=== PATIENT | female | born 1955 | race Caucasian/White ===

== ENCOUNTER 2020-07-08 13:37 | Outpatient (REF) | payer OTHER, SELFPAY ==
[2020-07-08 13:49] LABS: MANUAL DIFF FLAG NO
[2020-07-08 13:53] LABS: Basophils Absolute Auto 0.1 X10*3/uL (0.0-0.2); Basophils Percent Auto 0.7 % (0-2); Eosinophils Absolute Auto 0.4 X10*3/uL (0.0-0.4); Eosinophils Percent Auto 3.9 % (0-4); Hematocrit 41.1 % (37-47); Hemoglobin 13.2 g/dl (12.0-16.0); Imm Gran Abs Auto 0.02 X10*3/uL (0.00-0.03); Imm Gran Pct Auto 0.2 % (0.0-0.4); Lymphocytes Absolute Auto 2.8 X10*3/uL (1.2-4.9); Lymphocytes Percent Auto 29.9 % (20-40); Mean Corpuscular HGB Conc 32.1 g/dl (31.0-35.0); Mean Corpuscular Hemoglobin 31.7 pg (27.0-33.0); Mean Corpuscular Volume 98.8 fL (80-98); Mean Platelet Volume 11.5 fL (9.4-12.3); Monocytes Absolute Auto 0.7 X10*3/uL (0.1-1.2); Monocytes Percent Auto 7.1 % (2-11); Neutrophils Absolute Auto 5.5 X10*3/uL (2.0-8.3); Neutrophils Percent Auto 58.2 % (45-73); Platelet Count 285 X10*3/uL (160-400); Red Blood Count 4.16 X10*6/uL (4.20-5.50); Red Cell Distribution Width 13.3 % (11.0-16.0); White Blood Count 9.5 X10*3/uL (4.8-10.8)
[2020-07-08 14:20] LABS: Estimated Average Glucose 120 mg/dL; Hemoglobin A1c % 5.8 %
[2020-07-08 14:21] LABS: Glucose Urine UA NEG (NEG); Leukocyte Esterase Urine NEG (NEG); Nitrite Urine NEG (NEG); Specific Gravity - Urine <= 1.005 (1.005-1.025); Urine Blood NEG (NEG); Urine Ketones NEG (NEG); Urine Protein NEG (NEG-TRACE)
[2020-07-08 14:22] LABS: Appearance Urine CLEAR; Color Urine STRAW
[2020-07-08 14:35] LABS: Alanine Aminotransferase 12 U/L (0-31); Albumin Level 4.2 g/dL (3.5-5.0); Alkaline Phosphatase 56 U/L (39-117); Anion Gap 12 (12-20); Aspartate Amino Transferase 16 U/L (5-31); Bilirubin Total 0.3 mg/dL (0.0-1.0); Blood Urea Nitrogen 16 mg/dL (9-16); Calcium 9.2 mg/dL (8.4-10.2); Carbon Dioxide 27 mmol/L (22-29); Chloride 103 mmol/L (96-108); Cholesterol 218 mg/dL; Estimated Glomerular Filt Rate > 60; Glucose Fasting 100 mg/dL (60-99); HDL Cholesterol 78 mg/dL; LDL Cholesterol Calculated 125 mg/dl; Potassium 4.1 mmol/l (3.3-5.1); Sodium 138 mmol/L (135-145); Total Protein 6.3 g/dL (6.5-8.0); Triglycerides 78 mg/dL
[2020-07-08 14:42] LABS: Creatinine Urine 14.39 mg/dL; Microalbumin Urine < 5.0 mg/L
[2020-07-08 14:58] LABS: Vitamin D 25-OH Total 31.3 ng/mL (>30)
== END 2020-07-08 13:38 | disposition home or self-care (01) ==
LOC: HO.LNP 13:37
PROVIDERS: PCP Internal Medicine; Visit Provider Internal Medicine
DX: Z00.00 Encounter for general adult medical examination without abnormal findings (principal); J44.9 Chronic obstructive pulmonary disease, unspecified; K58.0 Irritable bowel syndrome with diarrhea; F34.1 Dysthymic disorder; R73.03 Prediabetes; M85.859 Other specified disorders of bone density and structure, unspecified thigh; Z87.891 Personal history of nicotine dependence
CPT/HCPCS: 80053; 80061; 81003; 82043; 82306; 83036; 85025

== ENCOUNTER 2020-07-13 | Outpatient (REF) | payer OTHER, SELFPAY | END 2020-07-13 00:01 | disposition home or self-care (01) | LOC: HO.LNP | PROVIDERS: Visit Provider Internal Medicine | DX: Z12.4 Encounter for screening for malignant neoplasm of cervix (principal) | CPT/HCPCS: 88142 ==

== ENCOUNTER 2020-07-15 14:04 | Outpatient (REF) | payer OTHER, SELFPAY | END 2020-07-15 14:05 | disposition home or self-care (01) | LOC: HO.LNP 14:04 | PROVIDERS: Visit Provider Internal Medicine | DX: Z00.00 Encounter for general adult medical examination without abnormal findings (principal); Z12.4 Encounter for screening for malignant neoplasm of cervix ==

== ENCOUNTER 2020-09-03 07:41 | Outpatient (REF) | payer OTHER, SELFPAY | END 2020-09-03 07:42 | disposition home or self-care (01) | LOC: HO.LAB 07:41 | PROVIDERS: Visit Provider Internal Medicine | DX: Z20.828 Contact with and (suspected) exposure to other viral communicable diseases (principal) | CPT/HCPCS: C9803; U0003 ==

== ENCOUNTER 2020-09-21 10:24 | Outpatient (REF) | payer OTHER, SELFPAY ==
--- NOTE | 2020-09-21 | MM_ITS ---
EXAMINATION: MM SCREENING DIGITAL BREAST TOMOSYNTHESIS, BILATERAL CLINICAL INFORMATION: Screening. Asymptomatic. The lifetime risk of breast cancer based on the Tyrer-Cuzick Model is 5%. COMPARISON: Mammography: 06/30/2019, 04/11/2018, 03/25/2017 TECHNIQUE: Digital breast tomosynthesis is performed in both the craniocaudal and mediolateral oblique views along with computer-aided detection (CAD). Synthesized 2D images are generated from the tomosynthesis. FINDINGS: There are scattered areas of fibroglandular density (ACR BI-RADS breast composition Category b). There are no significant masses, abnormal calcifications, or other abnormalities. Minimal pattern is similar to prior study. No significant changes. MM/MM tomosynthesis screening BI IMPRESSION: No mammographic evidence of malignancy. ASSESSMENT: BI-RADS 1: Negative RECOMMENDATION: Routine annual mammography screening. This patient's information was entered into a reminder system with a target due date for their next mammogram.
== END 2020-09-21 10:25 | disposition home or self-care (01) ==
LOC: HO.MAMMO 10:24
PROVIDERS: PCP Internal Medicine; Visit Provider Internal Medicine
DX: Z12.31 Encounter for screening mammogram for malignant neoplasm of breast (principal)
CPT/HCPCS: 77063; 77067

== ENCOUNTER 2021-05-23 07:43 | Outpatient (REF) | payer OTHER, SELFPAY | END 2021-05-23 07:44 | disposition home or self-care (01) | LOC: HO.LAB 07:43 | PROVIDERS: PCP Internal Medicine; Visit Provider Internal Medicine | DX: Z20.822 Contact with and (suspected) exposure to COVID-19 (principal) | CPT/HCPCS: C9803; U0003; U0005 ==

== ENCOUNTER 2021-07-04 08:01 | Outpatient (REF) | payer OTHER, SELFPAY ==
--- NOTE | ~2021-07-04 | MM_ITS ---
"EXAMINATION: BONE DENSITOMETRY CLINICAL INDICATION: Osteoporosis. COMPARISON: Previous BD dated 06/30/2019 and baseline BD dated 01/19/2011. TECHNIQUE: Using a [employer] DXA System (software version: 13.1) manufactured by [employer], dual-energy x-ray absorptiometry was performed of the lumbar spine and left hip. The images are of good technical quality. Summary results are attached. FINDINGS: AP SPINE L1-L4: Current: BMD 1.159 g/cm2, Z-score 1.8, T-score -0.2, normal, 1.5% decrease from previous, 6.0% decrease from baseline (<5% change is not significant). Prior: BMD 1.177 g/cm2. Baseline: BMD 1.233 g/cm2. LEFT FEMUR, NECK: Current: BMD 0.789 g/cm2, Z-score -0.1, T-score -1.8, osteopenia. Prior: BMD 0.803 g/cm2. Baseline: BMD 0.912 g/cm2. LEFT FEMUR, TOTAL: Current: BMD 0.905 g/cm2, Z-score 0.7, T-score -0.8, normal, 2.0% decrease from previous, 10.3% decrease from baseline (<5% change is not significant). Prior: BMD 0.923 g/cm2. Baseline: BMD 1.009 g/cm2. IDENTIFIED RISK FACTORS: Menopause. HISTORY OF FRACTURE: None listed. MEDICATIONS: None listed. MM/XR DEXA axial skeleton IMPRESSION: 1. DIAGNOSIS: Osteopenia based on the lowest T-score value of -1.8 in the femoral neck applying World Health Organization criteria. 2. 10-YEAR FRACTURE RISK PREDICTION, FRAX: Major osteoporotic fracture (clinical spine, forearm, hip or shoulder) 8.5%. Hip fracture 1.1%. 3. Treatment Recommendations: NOF guidelines recommend consideration for treatment in postmenopausal women and men age 50 and older presenting with the following: -A hip or vertebral (clinical or morphometric) fracture. -T-score less than or equal to -2.5 at the femoral neck or spine after appropriate evaluation to exclude secondary causes. -Low bone mass at the hip or spine and a 10-year fracture probability by FRAX of greater than or equal to 3% for hip fracture or greater than or equal to 20% for major osteoporotic fracture based on the [place] adapted WHO algorithm. 4. Other Recommendations: All treatment decisions require clinical judgment and consideration of individual patient factors, including patient preferences, comorbidities, previous drug use, risk factors not captured in the FRAX model (e.g. frailty, falls, vitamin D deficiency, increased bone turnover, interval significant decline in bone density) and possible under or overestimation of fracture risk by FRAX. Additional medical evaluation for secondary cause of low bone mineral density may be appropriate. FUTURE SCAN RECOMMENDATION: People with diagnosed cases of osteoporosis or at high risk for fracture should have regular bone mineral density tests. For patients eligible for Medicare, routine testing is allowed once every 2 years. The testing frequency can be increased to one year for patients who have rapidly progressing disease, those who are receiving or discontinuing medical therapy to restore bone mass, or have additional risk factors."
== END 2021-07-04 08:02 | disposition home or self-care (01) ==
LOC: HO.MAMMO 08:01
PROVIDERS: Visit Provider Internal Medicine
DX: Z13.820 Encounter for screening for osteoporosis (principal); M81.0 Age-related osteoporosis without current pathological fracture; Z78.0 Asymptomatic menopausal state
CPT/HCPCS: 77080

== ENCOUNTER 2021-07-07 06:22 | Day surgery (SDC) | payer OTHER, SELFPAY ==
[2021-07-03 14:51] VITALS: BMI 20.1
[2021-07-07 06:41] VITALS: BMI 20.1
[2021-07-07 06:49] VITALS: BP 130/80; PULSE 82; RESP 15; TEMP 37.2; O2SAT 99
--- NOTE | 2021-07-07 08:23 | HO.ANESPROP2 ---
FORMERLY [facility] Past Medical History Medical History Asthma COVID-19 vaccine series completed IBS (irritable bowel syndrome) Post-operative nausea and vomiting Seasonal allergies Surgical History Surgical History H/O colonoscopy Hx of tonsillectomy History of Problems with Anesthesia: No Social History Social History Are you a primary direct care counselor to a significant other at home: No Do you presently have visiting nurse or other home services: No Patient Tobacco Use Status: Former Tobacco user Quit Date: 2019 Tobacco use type: Cigarette Years Smoked: 25 Use of substances other than those prescribed or required for medical reasons: No Have you been hit, kicked, punched, or otherwise hurt by someone within the past year? If so, by whom?: No Are you DNR?: No Advance Directives: Yes (states is her 2 sisters-will bringHCP form DOS) Advance Directives on File: Yes Advance Directives Date on File: 07/07/21 Recently lost weight without trying: No Eating poorly because of decreased appetite: No Nutrition Risks: No Nutritional Risk Poor oral hygiene: No (has permanent bridges) Meds Allergies Allergy/AdvReac Type Severity Reaction Status Date / Time cefaclor [From [facility]] Allergy Intermediate Rash Verified 07/03/21 14:57 Active Medications: Current Medications Lactated Ringer's (Lr) 1,000 mls @ 500 mls/hr IV .Q2H RENNY Stop: 07/07/21 09:30 Sodium Biphosphate/Sodium Phosphate (Sodium Phosphate,Yates-Dibasic 133 Ml Enema) 133 ml ND ONCE PRN PRN Reason: Poor Colonoscopy Prep Results Home Medications Medication Instructions Recorded Confirmed Last Taken Type albuterol sulfate 90 mcg/actuation 2 puff PO Q4-6H PRN 07/03/21 07/03/21 Unknown History aerosol inhaler (Ventolin HFA) fluticasone propionate 50 1 spray INTRANASAL DAILY 07/03/21 07/03/21 07/07/21 History mcg/actuation nasal 1 spray spray,suspension loratadine 10 mg tablet (Claritin) 10 mg PO DAILY 07/03/21 07/03/21 07/07/21 History 10 mg Exam Exam Date and Time: July 07, 2021 0823 Height,Weight and Vital Signs: Height 5 ft 2 in Weight 49.895 kg Last Vital Signs Temp 98.9 F 07/07/21 06:49 Pulse 82 07/07/21 06:49 Resp 15 07/07/21 06:49 BP 130/80 07/07/21 06:49 Pulse Ox 99 07/07/21 06:49 Airway Mallampati Class: II TM Dist: >3cm Neck ROM: Full Loose/Missing/Broken Teeth: No Heart: RRR Lungs: CTA Assessment and Plan Assessment Anesthesia Assessment: Anesthesia Plan Discussed and Chart Reviewed Final Anesthetic Review History of Problems with Anesthesia: No NPO: Yes ASA Class: II Final Preanesthetic Review: Meds/Allgs Chart Reviewed, Consent Obtained/Reviewed and Anes Risks/Benef Reviewed Patient Risk: Low Procedure Risk: Low Anesthetic Plan Anesthetic Plan: MAC: Disposition: Standard PACU
[2021-07-07 08:27] VITALS: BP 101/53; PULSE 80; RESP 18; TEMP 36.9; O2SAT 100
--- NOTE | 2021-07-07 08:29 | PM.OP ---
Brief Operative Note Date of Service: 07/07/21 Pre-op diagnosis: Screening, Diarrhea Post-op diagnosis: other (Colon polyp, R/O microscopic colitis) Procedure: Colonoscopy to cecum and TI with biopsies, and bx/removal of polyp Surgeon: Zhen Florian Anesthesia: MAC Was an Brokerage Manager used for this Procedure?: No Estimated blood loss (mL): 3.0 Pathology: other (A. Terminal ileum B. Ascending colon C. Descending colon D. Polyp at 40cm) Condition: stable Disposition: PACU
[2021-07-07 08:42] VITALS: BP 124/52; PULSE 78; RESP 16; O2SAT 98
--- NOTE | 2021-07-07 09:20 | OP_ITS ---
SURGEON: Zhen Florian MD INDICATIONS: The patient presents for evaluation of colorectal cancer screening, diarrhea, and personal history of tubular adenoma of the colon. Full consent has been obtained from her for this, including risks of bleeding and perforation. PREOPERATIVE DIAGNOSIS: Colorectal cancer screening, diarrhea, personal history of tubular adenoma of the colon. POSTOPERATIVE DIAGNOSIS: Colorectal cancer screening, diarrhea, personal history of tubular adenoma of the colon, small colon polyp, rule out microscopic colitis, diverticulosis, and internal hemorrhoids. PROCEDURE PERFORMED: Colonoscopy to cecum and terminal ileum with biopsies, and biopsy removal of polyp. ESTIMATED BLOOD LOSS: COMPLICATIONS: ANESTHESIA: Medication used, monitored anesthesia care. ASSISTANTS: SPECIMENS: DESCRIPTION OF PROCEDURE: The patient was placed in the left lateral decubitus position. The digital rectal exam revealed no abnormalities. The Olympus video pediatric colonoscope was entered into the rectum and advanced easily to the cecum. Once in the cecum, I did identify normal-appearing cecal pouch with appendiceal orifice and a normal-appearing ileocecal valve. The terminal ileum was cannulated and appeared normal. Biopsies were obtained. The scope was withdrawn back in the colon. The entire cecum and ileocecal valve appeared normal. The scope was slowly withdrawn assessing all mucosal surfaces carefully. Preparation was excellent. I did not visualize any sign of colitis nor angiodysplasia. Random biopsies were obtained in the ascending and descending colon. At 40 cm, there was a flat approximately 3 or 4 mm polyp, which was biopsied and completely removed with cold biopsy forceps. There was a mild amount of sigmoid diverticulosis. In the rectum, scope was retroflexed visualizing internal hemorrhoids, but no other pathology. The rectal mucosa appeared normal. Scope was straightened and withdrawn from the patient. She tolerated the procedure well and was returned to recovery area in stable condition. IMPRESSION: 1. Small colon polyp, status post biopsy removal. 2. Rule out microscopic colitis. 3. Mild diverticulosis. 4. Internal hemorrhoids. PLAN: The results of the biopsies will be checked. I would recommend a repeat colonoscopy in 5 years for further screening and surveillance. If the colon biopsies are otherwise negative, she will continue to use Imodium on a p.r.n. basis. She was advised not to use any aspirin and NSAIDs for 1 week. MD LOS Gonsalez/NORI / [phone]
== END 2021-07-07 09:25 | disposition home or self-care (01) ==
PROVIDERS: PCP Internal Medicine; Visit Provider Internal Medicine
PROC: 0DJD8ZZ Inspection of Lower Intestinal Tract, Via Natural or Artificial Opening Endoscopic (ICD-10-PCS; CPT 45378; principal; 2021-07-07 07:30)
DX: Z12.11 Encounter for screening for malignant neoplasm of colon (principal); Z86.010 Personal history of colon polyps; K58.0 Irritable bowel syndrome with diarrhea; K63.5 Polyp of colon; K57.30 Diverticulosis of large intestine without perforation or abscess without bleeding; K64.8 Other hemorrhoids; Z79.899 Other long term (current) drug therapy; Z87.891 Personal history of nicotine dependence
CPT/HCPCS: 45380; 88305

== ENCOUNTER 2021-08-24 10:19 | Outpatient (REF) | payer OTHER, SELFPAY ==
[2021-08-24 10:21] LABS: MANUAL DIFF FLAG NO
[2021-08-24 10:56] LABS: Basophils Absolute Auto 0.1 X10*3/uL (0.0-0.2); Eosinophils Absolute Auto 0.5 X10*3/uL (0.0-0.4); Hematocrit 39.2 % (37.0-47.0); Hemoglobin 12.6 g/dl (12.0-16.0); Imm Gran Abs Auto 0.01 X10*3/uL (0.00-0.03); Imm Gran Pct Auto 0.1 % (0.0-0.4); Lymphocytes Absolute Auto 2.5 X10*3/uL (1.2-4.9); Lymphocytes Percent Auto 35.9 % (20-40); Mean Corpuscular HGB Conc 32.1 g/dl (31.0-35.0); Mean Corpuscular Volume 96.3 fL (80.0-98.0); Mean Platelet Volume 11.1 fL (9.4-12.3); Monocytes Absolute Auto 0.4 X10*3/uL (0.1-1.2); Monocytes Percent Auto 6.3 % (2-11); Neutrophils Absolute Auto 3.4 x10*3/uL (2.0-8.3); Neutrophils Percent Auto 49.7 % (45-73); Platelet Count 277 X10*3/uL (160-400); Red Blood Count 4.07 X10*6/uL (4.20-5.50); Red Cell Distribution Width 13.2 % (11.0-16.0); White Blood Count 6.9 X10*3/uL (4.8-10.8)
[2021-08-24 11:07] LABS: Estimated Average Glucose 120 mg/dL; Hemoglobin A1C 129.0522 umol/L; Hemoglobin A1c % 5.8 %
[2021-08-24 11:12] LABS: Appearance Urine CLEAR; Color Urine YELLOW; Glucose Urine UA NEG (NEG); Leukocyte Esterase Urine 2+ (NEG); Nitrite Urine NEG (NEG); Specific Gravity - Urine <= 1.005 (1.005-1.025); Urine Blood NEG (NEG); Urine Ketones NEG (NEG); Urine Protein NEG (NEG-TRACE)
[2021-08-24 11:15] LABS: Alanine Aminotransferase 17 U/L (0-31); Albumin Level 4.3 g/dL (3.5-5.0); Alkaline Phosphatase 56 U/L (39-117); Anion Gap 10 (12-20); Aspartate Amino Transferase 22 U/L (5-31); Bilirubin Total 0.5 mg/dL (0.0-1.0); Blood Urea Nitrogen 19 mg/dL (9-16); Calcium 9.4 mg/dL (8.4-10.2); Carbon Dioxide 26 mmol/L (22-29); Chloride 102 mmol/L (96-108); Cholesterol 245 mg/dL; Estimated Glomerular Filt Rate > 60; Glucose Fasting 100 mg/dL (60-99); HDL Cholesterol 94 mg/dL; LDL Cholesterol Calculated 138 mg/dl; Magnesium 2.1 mg/dL (1.6-2.6); Potassium 4.2 mmol/L (3.3-5.1); Sodium 134 mmol/L (135-145); Total Protein 6.6 g/dL (6.5-8.0); Triglycerides 69 mg/dL
[2021-08-24 11:31] LABS: Creatinine Urine 44.27 mg/dL; Microalbumin Urine < 5.0 mg/L
[2021-08-24 11:32] LABS: Vitamin D 25-OH Total 24.5 ng/mL (>30)
[2021-08-24 11:53] LABS: Bacteria Urine TRACE /LPF; RBC Urine 0 /HPF (0); Squamous Epithelial Cell Urine 1+ /LPF
== END 2021-08-24 10:20 | disposition home or self-care (01) ==
LOC: HO.LNP 10:19
PROVIDERS: Visit Provider Internal Medicine
DX: Z00.00 Encounter for general adult medical examination without abnormal findings (principal); R30.0 Dysuria; R73.09 Other abnormal glucose
CPT/HCPCS: 80053; 80061; 81001; 81003; 82043; 82306; 83036; 83735; 85025; 87086

== ENCOUNTER 2021-10-21 08:46 | Outpatient (REF) | payer OTHER, SELFPAY ==
--- NOTE | ~2021-10-21 | MM_ITS ---
EXAMINATION: MM SCREENING DIGITAL BREAST TOMOSYNTHESIS, BILATERAL CLINICAL INFORMATION: Screening. Asymptomatic. The lifetime risk of breast cancer based on the Tyrer-Cuzick Model is 5%. COMPARISON: Mammography: 09/21/2020, 06/30/2019, 04/11/2018, 03/25/2017 TECHNIQUE: Digital breast tomosynthesis is performed in both the craniocaudal and mediolateral oblique views along with computer-aided detection (CAD). Synthesized 2D images are generated from the tomosynthesis. FINDINGS: There are scattered areas of fibroglandular density (ACR BI-RADS breast composition Category b). Parenchymal pattern is similar to prior studies. There is no developing density or interval mass or architectural abnormality. Intramammary node again seen overlying posterior upper outer left breast, similar to prior exam 2017. Low right axillary tail node is stable as well. The skin contours are smooth. No abnormal calcifications. No significant changes. MM/MM tomosynthesis screening BI IMPRESSION: No mammographic evidence of malignancy. ASSESSMENT: BI-RADS 2: Benign RECOMMENDATION: Routine annual mammography screening. This patient's information was entered into a reminder system with a target due date for their next mammogram.
== END 2021-10-21 08:47 | disposition home or self-care (01) ==
LOC: HO.MAMMO 08:46
PROVIDERS: PCP Internal Medicine; Visit Provider Internal Medicine
DX: Z12.31 Encounter for screening mammogram for malignant neoplasm of breast (principal)
CPT/HCPCS: 77063; 77067

== ENCOUNTER 2022-11-10 08:41 | Outpatient (REF) | payer OTHER, SELFPAY ==
--- NOTE | ~2022-11-10 | MM_ITS ---
EXAMINATION: MM SCREENING DIGITAL BREAST TOMOSYNTHESIS, BILATERAL CLINICAL INFORMATION: Screening. Asymptomatic. The lifetime risk of breast cancer based on the Tyrer-Cuzick Model is 5.0%. COMPARISON: Mammography: October 21, 2021 and studies dating back to March 03, 2016 TECHNIQUE: Digital breast tomosynthesis is performed in both the craniocaudal and mediolateral oblique views along with computer-aided detection (CAD). Synthesized 2D images are generated from the tomosynthesis. FINDINGS: The breasts are heterogeneously dense, which may obscure small masses (ACR BI-RADS breast composition Category c). There are no significant masses, abnormal calcifications, or other abnormalities. MM/MM tomosynthesis screening BI IMPRESSION: No significant changes ASSESSMENT: BI-RADS 1: Negative RECOMMENDATION: Routine annual mammography screening. This patient's information was entered into a reminder system with a target due date for their next mammogram.
== END 2022-11-10 08:42 | disposition home or self-care (01) ==
LOC: HO.MAMMO 08:41
PROVIDERS: PCP Internal Medicine; Visit Provider Internal Medicine
DX: Z12.31 Encounter for screening mammogram for malignant neoplasm of breast (principal)
CPT/HCPCS: 77063; 77067

== ENCOUNTER 2022-11-30 10:45 | Outpatient (REF) | payer OTHER, SELFPAY ==
[2022-11-30 10:54] LABS: MANUAL DIFF FLAG NO
[2022-11-30 11:58] LABS: Appearance Urine Clear; Color Urine Yellow; Glucose Urine UA Negative (Negative); Leukocyte Esterase Urine Negative (Negative); Nitrite Urine Negative (Negative); Urine Blood Negative (Negative); Urine Ketones Negative (Negative); Urine Protein Negative (Neg-Trace)
[2022-11-30 12:01] LABS: Bacteria Urine None Seen (None Seen); Hyaline Casts Urine 0-2 /LPF (0-2); RBC Urine 0-2 /HPF (0-2); Squamous Epithelial Cell Urine 0-2 /HPF (0-2); WBC Urine 0-5 /HPF (0-5)
[2022-11-30 12:02] LABS: Basophils Absolute Auto 0.1 X10*3/uL (0.0-0.2); Basophils Percent Auto 1.2 % (0-2); Eosinophils Absolute Auto 0.3 X10*3/uL (0.0-0.4); Eosinophils Percent Auto 5.2 % (0-4); Hematocrit 38.7 % (37.0-47.0); Hemoglobin 12.7 g/dl (12.0-16.0); Imm Gran Abs Auto 0.02 X10*3/uL (0.00-0.03); Imm Gran Pct Auto 0.3 % (0.0-0.4); Lymphocytes Absolute Auto 1.9 X10*3/uL (1.2-4.9); Lymphocytes Percent Auto 29.5 % (20-40); Mean Corpuscular HGB Conc 32.8 g/dl (31.0-35.0); Mean Corpuscular Hemoglobin 31.1 pg (27.0-33.0); Mean Corpuscular Volume 94.9 fL (80.0-98.0); Mean Platelet Volume 10.5 fL (9.4-12.3); Monocytes Absolute Auto 0.5 X10*3/uL (0.1-1.2); Monocytes Percent Auto 8.1 % (2-11); Neutrophils Absolute Auto 3.7 x10*3/uL (2.0-8.3); Neutrophils Percent Auto 55.7 % (45-73); Platelet Count 300 X10*3/uL (160-400); Red Blood Count 4.08 X10*6/uL (4.20-5.50); Red Cell Distribution Width 13.7 % (11.0-16.0); White Blood Count 6.6 X10*3/uL (4.8-10.8)
[2022-11-30 12:39] LABS: Estimated Average Glucose 123 mg/dL; Hemoglobin A1c % 5.9 %
[2022-11-30 12:49] LABS: Erythrocyte Sedimentation Rate 7 MM/HR (0-20)
[2022-11-30 13:19] LABS: Alanine Aminotransferase 17 U/L (0-31); Albumin Level 4.2 g/dL (3.5-5.0); Alkaline Phosphatase 63 U/L (39-117); Anion Gap 14 (12-20); Aspartate Amino Transferase 21 U/L (5-31); Bilirubin Total 0.5 mg/dL (0.0-1.0); Blood Urea Nitrogen 22 mg/dL (9-16); Carbon Dioxide 25 mmol/L (22-29); Chloride 104 mmol/L (96-108); Cholesterol 234 mg/dL; Estimated Glomerular Filt Rate > 60; Glucose Fasting 88 mg/dL (60-99); HDL Cholesterol 91 mg/dL; LDL Cholesterol Calculated 132 mg/dl; Potassium 4.6 mmol/L (3.3-5.1); Sodium 138 mmol/L (135-145); Total Protein 6.3 g/dL (6.5-8.0); Triglycerides 58 mg/dL
[2022-11-30 13:21] LABS: Creatinine Urine 33.21 mg/dL; Microalbumin Urine < 5.0 mg/L
[2022-11-30 13:43] LABS: Reflex LDLD? No
== END 2022-11-30 10:46 | disposition home or self-care (01) ==
LOC: HO.LNP 10:45
PROVIDERS: Visit Provider Internal Medicine
DX: Z00.00 Encounter for general adult medical examination without abnormal findings (principal); M35.3 Polymyalgia rheumatica; J44.9 Chronic obstructive pulmonary disease, unspecified; R73.09 Other abnormal glucose; K58.0 Irritable bowel syndrome with diarrhea; E55.9 Vitamin D deficiency, unspecified; Z79.899 Other long term (current) drug therapy
CPT/HCPCS: 80053; 80061; 81001; 82043; 82306; 83036; 85025; 85652

== ENCOUNTER 2022-12-03 11:28 | Outpatient (REF) | payer OTHER, SELFPAY | END 2022-12-03 11:29 | disposition home or self-care (01) | LOC: HO.LNP 11:28 | PROVIDERS: Visit Provider Internal Medicine | DX: Z12.4 Encounter for screening for malignant neoplasm of cervix (principal) | CPT/HCPCS: 88142 ==

== ENCOUNTER 2023-02-07 06:18 | Outpatient (REF) | payer MEDICARE, OTHER, SELFPAY ==
--- NOTE | ~2023-02-07 | XR_ITS ---
EXAMINATION: Bilateral shoulder x-ray CLINICAL INFORMATION: Pain COMPARISON: None. TECHNIQUE: 3 views each shoulder FINDINGS: Right: Bone alignment is normal. No fracture or dislocation. Mild arthritis at the acromioclavicular joint. The glenohumeral joint is normal. Normal soft tissues. Left: Bone alignment is normal. No fracture or dislocation. Mild arthritis at the acromioclavicular joint. The glenohumeral joint is normal. Soft tissues are normal. 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
--- NOTE | ~2023-02-07 | XR_ITS ---
EXAMINATION: Bilateral shoulder x-ray CLINICAL INFORMATION: Pain COMPARISON: None. TECHNIQUE: 3 views each shoulder FINDINGS: Right: Bone alignment is normal. No fracture or dislocation. Mild arthritis at the acromioclavicular joint. The glenohumeral joint is normal. Normal soft tissues. Left: Bone alignment is normal. No fracture or dislocation. Mild arthritis at the acromioclavicular joint. The glenohumeral joint is normal. Soft tissues are normal. XR/XR shoulder LT min 2V IMPRESSION: Mild osteoarthritis at the bilateral acromioclavicular joints.
== END 2023-02-07 06:19 | disposition home or self-care (01) ==
LOC: HO.HOSX 06:18
PROVIDERS: Visit Provider Physician Assistant
DX: M75.81 Other shoulder lesions, right shoulder (principal); M75.82 Other shoulder lesions, left shoulder
CPT/HCPCS: 20610; 73030; J1020

== ENCOUNTER 2023-05-01 09:00 | Outpatient (RCR) | payer MEDICARE, OTHER, SELFPAY ==
--- NOTE | 2023-03-06 10:33 | MHC.PT.EP ---
[facility] [place] Office [place] Office [place] [facility] [address] Jacky Lee [address] [phone] F: [phone] F: [phone] F: [phone] F: [phone] Physical Therapy Plan of Care Date of Evaluation: Date of Surgery: N/A Diagnosis: other shoulder lesions, right shoulder other shoulder lesions, left shoulder Assessment: Pt is a pleasant and motivated 67yo F who presents to PT with B shoulder pain for ~1 year. She presents to PT with current impairments in pain, decreased ROM, decreased shoulder strength, soft tissue restrictions and impaired posture. She is limited functionally by reaching back, reaching forward, washing back, sleeping, and yoga. She is an excellent candidate for skilled PT in order to address current impairments to facilitate return to PLOF. She is recommended to be seen 2x/week for 4 weeks and will be reassessed at that time. Frequency and Duration: The patient will be seen 2x/week for 4 weeks Short Term Goals: Pt will be I with HEP to promote self management of symptoms Pt will demonstrate improvements in postural awareness throughout the day Intermediate Goals: Pt will achieve full ROM and strength throughout B shoulders to assist with lifting and reaching Pt will demonstrate ability to reach behind her back to assist with tasks such as washing her back and donning jackets Pt will return to performing yoga routine with minimal to no pain Treatment Plan: Modalities to reduce pain, spasms and effusion. Manual therapy to restore motion and function. Therapeutic exercise to improve strength and flexibility. Neuromuscular re-education for posture and balance. Therapeutic activities to return to functional activities of daily living. Electronically signed by: Saray Felton, PT, DPT Please sign and return to therapist. Thank you for your referral.
--- NOTE | 2023-05-01 13:36 | MHC.PT.DC ---
[facility] [place] Office [place] Office [place] Office [address] Jacky Lee [address] [phone] F: [phone] F: [phone] F: [phone] F: [phone] Physical Therapy Discharge Report Diagnosis: other shoulder lesions, right shoulder other shoulder lesions, left shoulder Date of Surgery: N/A Date of Evaluation: 03/06/23 Date of Discharge: 05/01/23 Treatments to Date: 11 Cancellations to Date: No Shows to Date: Discharge Status: Achieved Goals Improved Function Independent with HEP Discharge Summary: Pt has made excellent progress since SOC. She has improved ROM and strength throughout B shoulders. She has had a decrease in pain and an improvement in postural awareness. She is I and compliant with HEP. She is being D/C from skilled PT at this time. Provided pt with printed, updated copy of HEP and pt verbalized understanding. Pt reports no further questions or concerns for PT at this time. Electronically signed by: Saray Felton, PT, DPT Please sign and return to therapist. Thank you for your referral.
== END 2023-05-01 12:19 | disposition home or self-care (01) ==
LOC: HO.PT 09:00
PROVIDERS: PCP Internal Medicine; Visit Provider Physician Assistant
DX: M75.81 Other shoulder lesions, right shoulder (principal); M75.82 Other shoulder lesions, left shoulder
CPT/HCPCS: 97110; 97112; 97161

== ENCOUNTER 2023-05-09 11:18 | Outpatient (REF) | payer MEDICARE, OTHER, SELFPAY ==
[2023-05-09 12:39] LABS: Vitamin D 25-OH Total 44.7 ng/mL (>30)
== END 2023-05-09 11:19 | disposition home or self-care (01) ==
LOC: HO.LNP 11:18
PROVIDERS: Visit Provider Internal Medicine
DX: E55.9 Vitamin D deficiency, unspecified (principal); M85.859 Other specified disorders of bone density and structure, unspecified thigh
CPT/HCPCS: 82306

== ENCOUNTER 2023-11-23 07:18 | Outpatient (REF) | payer MEDICARE, OTHER, SELFPAY | END 2023-11-23 07:19 | disposition home or self-care (01) | LOC: HO.MAMMO 07:18 | PROVIDERS: PCP Internal Medicine; Visit Provider Internal Medicine | DX: Z12.31 Encounter for screening mammogram for malignant neoplasm of breast (principal) | CPT/HCPCS: 77063; 77067 ==

== ENCOUNTER → 2023-11-23 07:30 | Outpatient (BNV) | payer MEDICARE, OTHER, SELFPAY | PROVIDERS: PCP Internal Medicine; Visit Provider Radiology Diagnostic Radiology | DX: Z12.31 Encounter for screening mammogram for malignant neoplasm of breast (principal) | CPT/HCPCS: 77063; 77067 ==

== ENCOUNTER 2024-02-12 08:29 | Outpatient (REF) | payer MEDICARE, OTHER, SELFPAY ==
--- NOTE | ~2024-02-12 | MM_ITS ---
EXAMINATION: BONE DENSITOMETRY CLINICAL INDICATION: Age-related osteoporosis without current pathological fracture. COMPARISON: Previous BD dated 07/04/2021 and baseline BD dated 01/19/2011. TECHNIQUE: Using a [employer] DXA System (software version: 13.1) manufactured by [employer], dual-energy x-ray absorptiometry was performed of the lumbar spine and left hip. The images are of good technical quality. Summary results are attached. FINDINGS: LEFT FEMUR, NECK: Current: BMD 0.790 g/cm2, Z-score -0.1, T-score -1.8, osteopenia. Prior: BMD 0.789 g/cm2. Baseline: BMD 0.912 g/cm2. LEFT FEMUR, TOTAL: Current: BMD 0.883 g/cm2, Z-score 0.5, T-score -1.0, normal, 2.4% decrease from previous, 12.5% decrease from baseline (<5% change is not significant). Prior: BMD 0.905 g/cm2. Baseline: BMD 1.009 g/cm2. AP SPINE L1-L4: Current: BMD 1.129 g/cm2, Z-score 1.5, T-score -0.4, normal, 2.6% decrease from previous, 8.4% decrease from baseline (<5% change is not significant). Prior: BMD 1.159 g/cm2. Baseline: BMD 1.233 g/cm2. IDENTIFIED RISK FACTORS: Menopause. HISTORY OF FRACTURE: None listed. MEDICATIONS: Vitamin D. MM/XR DEXA axial skeleton IMPRESSION: 1. DIAGNOSIS: Osteopenia based on the lowest T-score value of -1.8 in the femoral neck applying World Health Organization criteria. 2. 10-YEAR FRACTURE RISK PREDICTION, FRAX: Major osteoporotic fracture (clinical spine, forearm, hip or shoulder) 9.4%. Hip fracture 1.4%. 3. Treatment Recommendations: NOF guidelines recommend consideration for treatment in postmenopausal women and men age 50 and older presenting with the following: -A hip or vertebral (clinical or morphometric) fracture. -T-score less than or equal to -2.5 at the femoral neck or spine after appropriate evaluation to exclude secondary causes. -Low bone mass at the hip or spine and a 10-year fracture probability by FRAX of greater than or equal to 3% for hip fracture or greater than or equal to 20% for major osteoporotic fracture based on the [place] adapted WHO algorithm. 4. Other Recommendations: All treatment decisions require clinical judgment and consideration of individual patient factors, including patient preferences, comorbidities, previous drug use, risk factors not captured in the FRAX model (e.g. frailty, falls, vitamin D deficiency, increased bone turnover, interval significant decline in bone density) and possible under or overestimation of fracture risk by FRAX. Additional medical evaluation for secondary cause of low bone mineral density may be appropriate. FUTURE SCAN RECOMMENDATION: People with diagnosed cases of osteoporosis or at high risk for fracture should have regular bone mineral density tests. For patients eligible for Medicare, routine testing is allowed once every 2 years. The testing frequency can be increased to one year for patients who have rapidly progressing disease, those who are receiving or discontinuing medical therapy to restore bone mass, or have additional risk factors.
== END 2024-02-12 08:30 | disposition home or self-care (01) ==
LOC: HO.MAMMO 08:29
PROVIDERS: PCP Internal Medicine; Visit Provider Internal Medicine
DX: Z13.820 Encounter for screening for osteoporosis (principal); Z78.0 Asymptomatic menopausal state; M81.0 Age-related osteoporosis without current pathological fracture
CPT/HCPCS: 77080

== ENCOUNTER 2024-10-02 11:50 | Outpatient (REF) | payer MEDICARE, OTHER, SELFPAY ==
[2024-10-02 11:56] LABS: MANUAL DIFF FLAG NO
[2024-10-02 12:09] LABS: Basophils Absolute Auto 0.1 X10*3/uL (0.0-0.2); Basophils Percent Auto 1.5 % (0-2); Eosinophils Absolute Auto 0.3 X10*3/uL (0.0-0.4); Eosinophils Percent Auto 5.1 % (0-4); Hematocrit 37.7 % (37.0-47.0); Hemoglobin 12.4 g/dl (12.0-16.0); Imm Gran Abs Auto 0.01 X10*3/uL (0.00-0.03); Imm Gran Pct Auto 0.2 % (0.0-0.4); Lymphocytes Percent Auto 33.5 % (20-40); Mean Corpuscular HGB Conc 32.9 g/dl (31.0-35.0); Mean Corpuscular Hemoglobin 31.5 pg (27.0-33.0); Mean Corpuscular Volume 95.7 fL (80.0-98.0); Monocytes Absolute Auto 0.4 X10*3/uL (0.1-1.2); Monocytes Percent Auto 6.9 % (2-11); Neutrophils Absolute Auto 3.2 x10*3/uL (2.0-8.3); Neutrophils Percent Auto 52.8 % (45-73); Platelet Count 248 X10*3/uL (160-400); Red Blood Count 3.94 X10*6/uL (4.20-5.50); White Blood Count 6.1 X10*3/uL (4.8-10.8)
[2024-10-02 12:12] LABS: Appearance Urine Clear; Color Urine Yellow; Glucose Urine UA Negative (Negative); Leukocyte Esterase Urine Negative (Negative); Nitrite Urine Negative (Negative); PH 5.5 (5.0-9.0); Specific Gravity - Urine <= 1.005 (1.005-1.025); Urine Blood Negative (Negative); Urine Ketones Negative (Negative); Urine Protein Negative (Neg-Trace)
[2024-10-02 12:16] LABS: Bacteria Urine None Seen (None Seen); Hyaline Casts Urine 0-2 /LPF (0-2); RBC Urine 0-2 /HPF (0-2); Squamous Epithelial Cell Urine 0-2 /HPF (0-2); WBC Urine 0-5 /HPF (0-5)
[2024-10-02 12:18] LABS: Estimated Average Glucose 123 mg/dL; Hemoglobin A1C 125.7916 umol/L; Hemoglobin A1c % 5.9 % (<6.0); Total Hemoglobin (HGBA1C) 3092.1235 umol/L
[2024-10-02 12:47] LABS: Alanine Aminotransferase 19 U/L (0-31); Alkaline Phosphatase 51 U/L (39-117); Anion Gap 10 (12-20); Aspartate Amino Transferase 24 U/L (5-31); Bilirubin Total 0.4 mg/dL (0.0-1.0); Blood Urea Nitrogen 15 mg/dL (9-16); Carbon Dioxide 24 mmol/L (22-29); Chloride 105 mmol/L (96-108); Cholesterol 217 mg/dL (<200); Estimated Glomerular Filt Rate > 60; Glucose Fasting 114 mg/dL (60-99); HDL Cholesterol 87 mg/dL (>40); LDL Cholesterol Calculated 120 mg/dL (<100); Potassium 3.8 mmol/L (3.3-5.1); Sodium 135 mmol/L (135-145); Total Protein 6.2 g/dL (6.5-8.0); Triglycerides 51 mg/dL (<150)
[2024-10-02 12:52] LABS: Microalbumin Urine < 5.0 mg/L
== END 2024-10-02 11:51 | disposition home or self-care (01) ==
LOC: HO.LNP 11:50
PROVIDERS: Visit Provider Internal Medicine
DX: R73.09 Other abnormal glucose (principal); E55.9 Vitamin D deficiency, unspecified
CPT/HCPCS: 80053; 80061; 81001; 82043; 82306; 82570; 83036; 85025

== ENCOUNTER 2024-10-21 12:55 | Outpatient (AMB) | payer MEDICARE, OTHER, SELFPAY ==
--- NOTE | 2024-10-21 13:15 | A.OFFVIS_ITS ---
Vital Signs 10/21/24 13:17 Height 5 ft 1 in Weight 106 lb 2 oz BMI 20.0 Intake Visit Reasons: Skin Lesion of back Intake Note: This patient presents for skin lesion of back. Pt c/o; Onset 1 year, reports mole on back, reports itchiness. Cooker Tender Required: No Accompanied by: Self / Same As Patient Allergies [facility]] Allergy (Intermediate, Verified 10/21/24 13:17) Rash Medication List - Last Reconciled 10/21/24 by Zachary Samayoa MD albuterol sulfate 90 mcg/actuation (Ventolin HFA) 2 puffs PO Q4-6H PRN cholecalciferol (vitamin D3) 25 mcg PO DAILY fluticasone propion-salmeterol 250-50 mcg/dose (Advair Diskus) 1 ea inhalation BID fluticasone propionate 50 mcg/actuation 1 spray intranasal DAILY loratadine (Claritin) 10 mg PO DAILY HPI HPI Skin Lesion of back: Details: 68-year-old female here for a skin lesion on her back. She says she has had this for over a year and has been bothering her. This is causing itching and discomfort and she wants this removed. 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, 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 Review of Systems Const Denies chills and Denies fever(s) Card Denies chest pain, Denies dyspnea and Denies dyspnea on exertion Resp Denies cough, Denies dyspnea and Denies dyspnea on exertion GI Denies hematochezia and Denies change in bowel habits Denies hematuria Musc Denies back pain and Denies limited range of motion Neuro Denies focal weakness and Denies convulsions Psych Denies depression and Denies mood swings Physical Exam Vital Signs: BMI result Body Mass Index 20.0 Const General: comfortable and no acute distress Orientation/consciousness: patient oriented x3 Neck Neck: Yes no lymphadenopathy Resp Auscultation: clear to auscultation bilaterally Cardio Rhythm: regular rhythm GI Palpation (GI): Soft to palpation, nontender and no guarding Back/Spine/Pelvis Other: Flat, keratotic skin lesion on the mid back about 1 cm in diameter, irregular margins Neuro General: patient oriented x3 Assessment & Plan Assessment & Plan (1) Skin lesion of back: Code(s): L98.9 - Disorder of the skin and subcutaneous tissue, unspecified Category: Medical Plan: She wants this excised. I explained the technique of excision under local anesthesia. I reviewed the risks including but not limited to bleeding and infections and she wants to proceed. This will be done in the office on her next visit. Coding Level of Care Code New Pt Level 3 (61158) Diagnoses Skin lesion of back L98.9
== END 2024-10-21 13:47 | disposition home or self-care (01) ==
PROVIDERS: PCP Internal Medicine; Referring Provider Internal Medicine; Visit Provider Surgery
DX: L98.9 Disorder of the skin and subcutaneous tissue, unspecified (principal)
CPT/HCPCS: 99203

== ENCOUNTER → 2024-10-21 12:55 | Outpatient (BNVA) | payer MEDICARE, OTHER, SELFPAY | PROVIDERS: PCP Internal Medicine; Referring Provider Internal Medicine; Visit Provider Surgery | DX: L98.9 Disorder of the skin and subcutaneous tissue, unspecified (principal) | CPT/HCPCS: 99202 ==

== ENCOUNTER 2024-11-04 08:48 | Outpatient (REF) | payer MEDICARE, OTHER, SELFPAY ==
--- OUTSIDE RECORDS SUMMARY | 2024-11-04 10:51 | XMS_ITS | Patient Health Record ---
Author Organization Issa Kumar MD Address [address] [place] [address] [phone] Care Team Providers Care Block Feeder Name Role Phone JoséFiliberton Primary Care Provider Allergies Allergen (clinical drug ingredient) Drug/Non Drug Allergy documented on EMR Reaction Allergy Type Onset Date Status cefaclor ceclor (uncoded) hives Allergy Act ketty Results Component Value Reference Range Notes Complete Blood Count Auto Di ff Reviewed date:10/02/2024 12:35:51 PM Interpretation: Performing Lab:[facility], [address] [place] [phone] Notes/Report: White Blood Count 6.1 4.8-10.8 X10*3/uL [...] 0.0-0.2 /100WBC Neutrophils Absolute Auto 3.2 2.0-8.3 x10*3/uL Imm Gran Abs Auto 0.01 0.00-0.03 X10*3/uL Lymphocytes Absolute Auto 2.0 1.2-4.9 X10*3/uL Monocytes Absolute Auto 0.4 0.1-1.2 X10*3/uL Eosinophils Absolute Auto 0.3 0.0-0.4 X10*3/uL Basophils Absolute Auto 0.1 0.0-0.2 X10*3/uL NRBC Abs Auto 0.000 0.0-0.012 X10*3/uL Comprehensive Boley. Panel Fa st Reviewed date:10/02/2024 04:05:11 PM Interpretation: Performing Lab:[facility], [address] [place] [phone] Notes/Report: Sodium 135 135-145 mmol/L Potassium 3.8 [...] Panel Reviewed date:10/02/2024 02:59:30 PM Interpretation: Performing Lab:[facility], [address] [place] [phone] Notes/Report: Triglycerides 51 <150 mg/dL Desirable Triglyceride: [...] Total Reviewed date:10/02/2024 04:05:20 PM Interpretation: Performing Lab:[address] [phone] Notes/Report: Vitamin D 25-OH Total 44.0 >30 [...] Random Reviewed date:10/02/2024 02:59:44 PM Interpretation: Performing Lab:[facility], [address] [place] [phone] Notes/Report: Creatinine Urine 36.30 Microalbumin Urine < 5.0 Microalbum/Creatinine Ratio Ur TNP <30 ug/mg cr Unable to calculate albumin/creatinine ratio due to low microalbumin or creatinine result. Hemoglobin A1c Reviewed date:10/02/2024 12:29:11 PM Interpretation: Performing Lab:[facility], [address] [place] [phone] Notes/Report: Hemoglobin A1c % 5.9 <6.0 % [...] average glucose, using the formula of the M3Y-Wvtyxqg Average Glucose study (ADAG), Diabetes Care, Vol.31,#8, May. 2007 UA ClnCatch+Micro w/rflx Cul t Reviewed date:10/02/2024 12:36:07 PM Interpretation: Performing Lab:[facility], [address] [place] [phone] Notes/Report: Urine, Clean Catch Color Urine Yellow Appearance Urine Clear PH 5.5 5.0-9.0 Glucose Urine UA Negative Negative mg/dL Urine Blood Negative Negative Specific [place] - Urine <= 1.005 1.005-1.025 Urine Protein Negative Neg-Trace mg/dL Urine Ketones Negative Negative mg/dL Nitrite Urine Negative Negative Leukocyte Esterase Urine Negative Negative RBC Urine 0-2 0-2 /HPF WBC Urine 0-5 0-5 /HPF Squamous Epithelial Cell Urine 0-2 0-2 /HPF Bacteria Urine None Seen None Seen Hyaline Casts Urine 0-2 0-2 /LPF Occult Blood, Stool, Guaiac Reviewed date:10/09/2024 02:48:33 PM Interpretation:Negative Performing Lab: Notes/Report: Negative Occult Blood, Stool, Guaiac Neg MM tomosynthesis screening B I Reviewed date:11/30/2023 06:14:30 PM Interpretation: Performing Lab: Notes/Report: [facility] [address] [place] [address] Mammography Report Signed Patient: Marissa Polanco MR#: [id number] : 1955 Acct:[id number] Age/Sex: 67 / F ADM Date: 11/23/23 Loc: MAMMO Attending Dr: Issa Kumar MD Ordering Physician: Issa Kumar MD Results: 1Ne gative Date of Service: 11/23/23 Follow Up: 1 Year From Orig ina Mammogram Procedure(s): MM tomosynthesis screening BI Accession Number(s): [id number] cc: Issa Kumar MD EXAMINATION: MM SCREENING DIGITAL BREAST TOMOSYNTHESIS, BILATERAL CLINICAL INFORMATION: Screening. Asymptomatic. COMPARISON: Mammography: This study is compared with prior exams dating back to 2019. TECHNIQUE: Digital breast tomosynthesis is performed in both the craniocaudal and mediolateral oblique views along with computer-aided detection (CAD). Synthesized 2D images are generated from the tomosynthesis. FINDINGS: There are scattered areas of fibroglandular density (ACR BI-RADS breast composition Category b). There are no significant masses, abnormal calcifications, or other abnormalities. MM/MM tomosynthesis screening BI IMPRESSION: No mammographic evidence of malignancy. ASSESSMENT: BI-RADS BI-RADS 1 - Negative RECOMMENDATION: Routine annual mammography screening. 1 year F/U This examination should not preclude the clinical evaluation of a suspicious palpable abnormality. This patient's information was entered into a reminder system with a target due date for their next mammogram. Dictated By: Cleopatra Motley MD Signed By: <Electronically signed by Cleopatra Motley MD in OV> 11/30/23 1302 DD/ 0733 TD/TT: Public Relations Officer: [place]y [facility]'s [address] [place] [address] Mammography Report Signed Patient: Marissa Polanco MR#: [id number] : 1955 Acct:[id number] Age/Sex: 67 / F ADM Date: 11/23/23 Loc: MAMMO Attending Dr: Issa Kumar MD Ordering Physician: Issa Kumar MD Results: 1Ne gative Date of Service: 11/23/23 Follow Up: 1 Year From Orig inal Mammogram Procedure(s): MM tomosynthesis screening BI Accession Number(s): [id number] cc: Issa Kumar MD EXAMINATION: MM SCREENING DIGITAL BREAST TOMOSYNTHESIS, BILATERAL CLINICAL INFORMATION: Screening. Asymptomatic. COMPARISON: Mammography: This study is compared with prior exams dating back to 2019. TECHNIQUE: Digital breast tomosynthesis is performed in both the craniocaudal and mediolateral oblique views along with computer-aided detection (CAD). Synthesized 2D image s are generated from the tomosynthesis. FINDINGS: There are scattered areas of fibroglandular density (ACR BI-RADS breast composition Category b). There are no significant masses, abnormal calcifications, or other abnormalities. MM/MM tomosynthesis screening BI IMPRESSION: No mammographic evidence of malignancy. ASSESSMENT: BI-RADS BI-RADS 1 - Negative RECOMMENDATION: Routine annual mammography screening. 1 year F/U This examination should not preclude the clinical evaluation of a suspicious palpable abnormality. This patient's information was entered into a reminder system with a target due date for their next mammogram. Dictated By: Cleopatra Motley MD Signed By: <Electronically signed by Cleopatra Motley MD in OV> 11/30/23 1302 DD/ 0733 TD/TT: Public Relations Officer: XR DEXA axial skeleton Reviewed date:02/13/2024 07:18:16 PM Interpretation: Performing Lab: Notes/Report: [facility]'s [address] [place] [address] Mammography Report Signed Patient: Marissa Polanco MR#: [id number] : 1955 Acct:[id number] Age/Sex: 68 / F ADM Date: 02/12/24 Loc: YOSEF Attending Dr: Issa Kumar MD Ordering Physician: Issa Kumar MD Results: Date of Service: 02/12/24 Follow Up: Procedure(s): XR DEXA axial skeleton Accession Number(s): [id number] cc: Issa Kumar MD EXAMINATION: BONE DENSITOMETRY CLINICAL INDICATION: Age-related osteoporosis without current pathological fracture. COMPARISON: Previous BD dated 07/04/2021 and baseline BD dated 01/19/2011. TECHNIQUE: Using a Rent[employer] DXA System (software version: 13.1) manufactured by [employer], dual-energy x-ray absorptiometry was performed of the lumbar spine and left hip. The images are of good technical quality. Summary results are attached. FINDINGS: LEFT FEMUR, NECK: Current: BMD 0.790 g/cm2, Z-score -0.1, T-score -1.8, osteopenia. Prior: BMD 0.789 g/cm2. Baseline: BMD 0.912 g/cm2. LEFT FEMUR, TOTAL: Current: BMD 0.883 g/cm2, Z-score 0.5, T-score -1.0, normal, 2.4% decrease from previous, 12.5% decrease from baseline (<5% change is not significant). Prior: BMD 0.905 g/cm2. Baseline: BMD 1.009 g/cm2. AP SPINE L1-L4: Current: BMD 1.129 g/cm2, Z-score 1.5, T-score -0.4, normal, 2.6% decrease from previous, 8.4% decrease from baseline (<5% change is not significant). Prior: BMD 1.159 g/cm2. Baseline: BMD 1.233 g/cm2. IDENTIFIED RISK FACTORS: Menopause. HISTORY OF FRACTURE: None listed. MEDICATIONS: Vitamin D. MM/XR DEXA axial skeleton IMPRESSION: 1. DIAGNOSIS: Osteopenia based on the lowest T-score value of -1.8 in the femoral neck applying World Health Organization criteria. 2. 10-YEAR FRACTURE RISK PREDICTION, FRAX: Major osteoporotic fracture (clinical spine, forearm, hip or shoulder) 9.4%. Hip fracture 1.4%. 3. Treatment Recommendations: NOF guidelines recommend consideration for treatment in postmenopausal women and men age 50 and older presenting with the following: -A hip or vertebral (clinical or morphometric) fracture. -T-score less than or equal to -2.5 at the femoral neck or spine after appropriate evaluation to exclude secondary causes. -Low bone mass at the hip or spine and a 10-year fracture probability by FRAX of greater than or equal to 3% for hip fracture or greater than or equal to 20% for major osteoporotic fracture based on the [place] adapted WHO algorithm. 4. Other Recommendations: All treatment decisions require clinical judgment and consideration of individual patient factors, including patient preferences, comorbidities, previous drug use, risk factors not captured in the FRAX model (e.g. frailty, falls, vitamin D deficiency, increased bone turnover, interval significant decline in bone density) and possible under or overestimation of fracture risk by FRAX. Additional medical evaluation for secondary cause of low bone mineral density may be appropriate. FUTURE SCAN RECOMMENDATION: People with diagnosed cases of osteoporosis or at high risk for fracture should have regular bone mineral density tests. For patients eligible for Medicare, routine testing is allowed once every 2 years. The testing frequency can be increased to one year for patients who have rapidly progressing disease, those who are receiving or discontinuing medical therapy to restore bone mass, or have additional risk factors. Dictated By: Pk Sanchez MD Signed By: <Electronically signed by Pk Sanchez MD in OV> 02/13/24 1107 DD/ 0915 TD/TT: Public Relations Officer: MARIBELL [place] [facility]'s [address] [place] [address] Mammography Report Signed Patient: Marissa Polanco MR#: [id number] : 1955 Acct:[id number] Age/Sex: 68 / F ADM Date: 02/12/24 Loc: YOSEF Attending Dr: Issa Kumar MD Ordering Physician: Issa Kumar MD Results: Date of Service: 02/12/24 Follow Up: Procedure(s): XR DEX A axial skeleton Accession Number(s): [id number] cc: Issa Kumar MD EXAMINATION: BONE DENSITOMETRY CLINICAL INDICATION: Age-related osteoporosis without current pathological fracture. COMPARISON: Previous BD dated 07/04/2021 and baseline BD dated 01/19/2011. TECHNIQUE: Using a [employer] DXA System (software version: 13.1) manufactured b [employer], dual-energy x-ray absorptiometry was performed of the lumbar spine and left hip. The images are of good technical quality. Summary results are attached. FINDINGS: LEFT FEMUR, NECK: Current: BMD 0.790 g/cm2, Z-score -0.1, T-score -1.8, osteopenia. Prior: BMD 0.789 g/cm2. Baseline: BMD 0.912 g/cm2. LEFT FEMUR, TOTAL: Current: BMD 0.883 g/cm2, Z-score 0.5, T-score -1.0, normal, 2.4% decrease from previous, 12.5% decrease from baseline (<5% change is not significant). Prior: BMD 0.905 g/cm2. Baseline: BMD 1.009 g/cm2. AP SPINE L1-L4: Current: BMD 1.129 g/cm2, Z-score 1.5, T-score -0.4, normal, 2.6% decrease from previous, 8.4% decrease from baseline (<5% change is not significant). Prior: BMD 1.159 g/cm2. Baseline: BMD 1.233 g/cm2. IDENTIFIED RISK FACTORS: Menopause. HISTORY OF FRACTURE: None listed. MEDICATIONS: Vitamin D. MM/XR DEXA axial skeleton IMPRESSION: 1. DIAGNOSIS: Osteopenia based on the lowest T-score value of -1.8 in the femoral neck applying World Health Organization criteria. 2. 10-YEAR FRACTURE RISK PREDICTION, FRAX: Major osteoporotic fracture (clinical spine, forearm, hip or shoulder) 9.4%. Hip fracture 1.4%. 3. Treatment Recommendations: NOF guidelines recommend consideration for treatment in postmenopausal women and men age 50 and older presenting with the following: -A hip or vertebral (clinical or morphometric) fracture. -T-score less than o r equal to -2.5 at the femoral neck or spine after appropriate evaluati on to exclude secondary causes. -Low bone mass at th e hip or spine and a 10-year fracture probability by FRAX of greater than or equal to 3% for hip fracture or greater than or equal to 20% for major osteoporotic fracture based on the [place] adapted WHO algorithm. 4. Other Recommendations: All treatment decisions require clinical judgment and consideration of individual patient factors, including patient preferences, comorbidities, previous drug use, risk factors not captured in the FRAX model (e.g. frailty, falls, vitamin D deficiency, increased bone turnover, interval significant decline in bone density) and possible under o r overestimation of fracture risk by FRAX. Additional medical evaluation for secondary cause of low bone mineral density may be appropriate. FUTURE SCAN RECOMMENDATION: People with diagnose d cases of osteoporosis or at high risk for fracture should have regular bone mineral density tests. For patients eligible for Medicar e, routine testing is allowed once every 2 years. The testing frequenc y can be increased to one year for patients who have rapidly progressing disease, those who are receiving or discontinuing medica l therapy to restore bone mass, or have additional risk factors. Dictated By: Pk Sanchez MD Signed By: <Electronically signed by Pk Sanchez MD in OV> 02/13/24 1107 DD/ 0915 TD/TT: Public Relations Officer: MARIBELL Norman Reviewed date:10/02/2024 12:29:44 PM Interpretation: Performing Lab:[facility], [address] [place] [phone] Notes/Report: Alejandro Norman See Note Specimen held untested for 24 hours; Call to request Chemistry testing. Reason For Referral Reason SKIN LESION OF BACK Diagnosis 1 Skin lesion of back (L98.9) Referral Organization Issa Kumar MD Referring Provider First Name Issa Referring Provider Last Name José Referring Provider Speciality Internal M edicine Referred Provider Zachary Samayoa Referred Provider Specialty Surgery General Notes Marissa Polanco 10/09/2024 03:15:02 PM EST > APPT SCHEDULED FOR OCT 21 AT 115, Marissa Polanco 10/23/2024 09:49:06 AM >OFFICE NOTE RECD Referral Priority Routine Referral Appointment Date 10/21/2024 Medications Medication SIG (Take, Route, Frequency, Duration) Notes Start Date End Date Status Fluticasone Propionate 50 MCG/ACT SPRAY 2 SPRAYS INTO EACH NOSTRIL EVERY DAY for 90 Active Hyoscyamine Sulfate 0.125 MG 1 tablet on the tongue and allow to dissolve as needed Orally Four times a day as needed 04/28/2019 Not-Taking Cyclobenzaprine HCl 5 MG 1 tablet at [...] a day for 30 days 10/08/2024 Active Ibuprofen 800 MG TAKE 1 TABLET BY MOUTH 3 TIMES A DAY WITH FOOD OR MILK Oral Three times a day for 90 days 04/29/2019 Not-Taking Ventolin HFA 108 (90 Base) MCG/ACT TAKE 2 PUFFS BY MOUTH EVERY 6 HOURS NEEDED 30 Inhalation every 4 hrs for 90 days Active Immunizations Vaccine Route Administration Date Status Comme nts Flu Vaccine IM Intramuscular 07/27/2011 Administered TDaP Unknown 08/01/2012 Administered Flu Vaccine IM Intramuscular 07/21/2013 Administered PPSV23 (Pnemovax) IM Intramuscular 07/27/2013 Administered Fluarix Quadrivalent IM Intramuscular 07/06/2014 Administe red PPSV23 (Pnemovax) IM Intramuscular 07/13/2014 Administered Fluarix Quadrivalent IM Intramuscular 07/12/2015 Administe red Fluarix Quadrivalent IM Intramuscular 06/12/2016 Administe red Fluarix Quadrivalent IM Intramuscular 06/17/2017 Administe red Fluarix Quadrivalent IM Intramuscular 11/26/2017 Administe red Prevnar 13 IM Intramuscular 05/27/2018 Administered Fluarix Quadrivalent IM Intramuscular 06/16/2018 Administe red Fluarix Quadrivalent IM Intramuscular 10/21/2018 Administe red Fluarix Quadrivalent IM Intramuscular 06/09/2019 Administe red Fluarix Quadrivalent IM Intramuscular 11/10/2019 Administe red PPSV23 (Pnemovax) IM Intramuscular 04/25/2020 Administered Fluarix Quadrivalent IM Intramuscular 06/23/2020 Administe red Tetanus Unknown 08/01/2012 Administered Covid Vaccine Unknown 10/04/2020 Administered [facility] PFIZE R Covid Vaccine Unknown 10/25/2020 Administered [facility] PFIZE R Fluarix Quadrivalent IM Intramuscular 06/22/2021 Administe red SARS-COV-2 Pfizer Unknown 07/14/2021 Administered SARS-COV-2 Pfizer Unknown 01/16/2022 Administered [facility] Fluarix Quadrivalent IM Intramuscular 06/28/2022 Administe red SARS-COV-2 Pfizer Unknown 07/06/2022 Administered [facility] Fluarix Quadrivalent IM Intramuscular 06/13/2023 Administe red RSV Unknown 08/23/2023 Administered [facility] TDaP Unknown 03/10/2024 Administered SARS-COV-2 Moderna 2022 Unknown 06/09/2024 Administered [facility] Fluarix Quadrivalent - 150 IM Intramuscular 07/02/2024 Administered Flu Vaccine Unknown 07/06/2014 Pending Tetanus Unknown 08/01/2012 Pending Social History Tobacco Use: Social History Observation [...] No Points 0 Interpretation Negative Section Notes: Quit smoking for 3 months Quit smoking for 3 months has quit for 9 days has quit for 9 days has quit for 9 days has quit for 9 days has quit for 9 days has quit for 9 days has quit for 9 days has quit for 9 days has quit for 9 days has quit for 9 days has quit for 9 days has quit for 9 days has quit for 9 days has quit for 9 days has quit for 9 days has quit for 9 days has quit for 9 days has quit for 9 days Problems Problem Type SNOMED Code ICD Code Onset Dates Problem Status W/U Status Risk Notes Problem Chronic obstructive pulmonary disease (69695397) Chronic obstructive pulmonary disease, unspecified (J44.9) Active confirmed Problem Irritable bowel syndrome with diarrhea (821397148) Irritable bowel syndrome with diarrhea (K58.0) Active confirmed Problem Dysthymia (79841165) Dysthymic disorder (F34.1) Active confirmed Problem Vitamin D deficiency (27247159) Vitamin D deficiency (E55.9) Active confirmed Problem 27680271 Anxiety (F41.9) Active confirmed Problem 350736407 Chronic sinusitis, unspecified (J32.9) Active confirmed Problem 478226407 Tubular adenoma of colon (D12.6) Active confirmed Problem 7926354 Prediabetes (R73.09) Active confirmed Problem 622223984 Mild intermittent asthma with acute exacerbation (J45.21) Active confirmed Problem 5110846 Former smoker (Z87.891) Active confirmed Problem Polymyalgia rheumatica (22804863) PMR (polymyalgia rheumatica) (M35.3) Active confirmed Problem Osteopenia of femoral neck (M85.859) Active confirmed Problem 888805831 Recurrent sinusitis (J32.9) Active confirmed Problem Osteopenia following menopause (disorder) (544827417) Osteopenia after menopause (M81.0) Active confirmed Vital Signs Blood pressure diastolic 58 mm Hg 10/08/2024 Height 63 in 10/08/2024 Blood pressure systolic 112 mm Hg 10/08/2024 Weight 113 lbs 10/08/2024 BMI 20.01 kg/m2 10/08/2024 Encounters Encounter Location Date Provider Diagnosis Issa Kumar MD [address] [place] [id number] 07/02/2024 Issa Kumar Encounter for immunization Z23 Issa Kumar MD [address] [place] [address] [id number] 10/02/2024 Issa Kumar Prediabetes R73.09 and Vitamin D deficiency E55.9 Issa Kumar MD [address] [place] [address] [id number] 01/30/2024 Issa Kumar Vertigo R42 Issa Kumar MD [address] [place] [address] [id number] 02/28/2024 Issa Kumar Mild intermittent asthma with acute exacerbation J45.21 Issa Kumar MD [address] [place] [address] [id number] 07/10/2024 Issa Kumar Acute recurrent maxillary sinusitis J01.01 Issa Kumar MD [address] [place] [address] [id number] 10/08/2024 Issa Kumar Prediabetes R73.09 ; Mild intermittent asthma with acute exacerbation J45.21 ; Chronic sinusitis, unspecified J32.9 and Skin lesion of back L98.9 Issa Kumar MD [address] [place] [address] [id number] 2023 Issa Kumar Mild intermittent asthma with acute exacerbation J45.21 Issa Kumar MD [address] [place] [address] [id number] 12/26/2023 Issa Kumar MD [address] [place] [address] [id number] 01/17/2024 Issa Kumar Osteopenia of femora l neck M85.859 and Vitamin D deficiency E55.9 Issa Kumar MD [address] [place] [address] [id number] 01/21/2024 Issa Kumar Osteopenia after menopause M81.0 Issa Kumar MD [address] [place] [address] [id number] 04/13/2024 Issa Kumar MD [address] [place] [address] [id number] 04/16/2024 Issa Kumar MD [address] [place] [address] [id number] 07/23/2024 Issa Kumar Acute recurrent maxillary sinusitis J01.01 Issa Kumar MD [address] [place] [address] [id number] 08/31/2024 Issa Kumar MD [address] [place] [address] [id number] 10/09/2024 Issa Kumar Colon cancer screening Z12.11 Assessments Encounter Date Diagnosis (ICD Code) Assessment Notes Treatment Notes Treatment Clinical Notes Section Notes 07/02/2024 Encounter for immunization (ICD-10 - Z23) 10/02/2024 Prediabetes (ICD-10 - R73.09) 10/02/2024 Vitamin D deficiency (ICD-10 - E55.9) 01/30/2024 Vertigo (ICD-10 - R42) patient verbalized understanding of medication and directions for use 02/28/2024 Mild intermittent asthma with acute exacerbation (ICD-10 - J45.21) patient vrbalized understanding of medication and directions for use 07/10/2024 Acute recurrent maxillary sinusitis (ICD-10 - J01.01) patient verbalized understanding of medication and directions for use 10/08/2024 Prediabetes (ICD-10 - R73.09) doing well on diet 10/08/2024 Mild intermittent asthma with acute exacerbation (ICD-10 - J45.21) having no problems 2023 Mild intermittent asthma with acute exacerbation (ICD-10 - J45.21) 01/17/2024 Osteopenia of femoral neck (ICD-10 - M85.859) order rinted and given to the patient. 07/23/2024 Acute recurrent maxillary sinusitis (ICD-10 - J01.01) 10/09/2024 Colon cancer screening (ICD-10 - Z12.11) 10/08/2024 Chronic sinusitis, unspecified (ICD-10 - J32.9) not having any problems 01/17/2024 Vitamin D deficiency (ICD-10 - E55.9) 01/21/2024 Osteopenia after menopause (ICD-10 - M81.0) 10/08/2024 Skin lesion of back (ICD-10 - L98.9) is itching her so is going to have dr alberts remove it/ REFERRAL FAXED TO [facility] [place] [facility] SURGERY Plan Of Treatment Pending Test Test Name Order Date Electrocardiogram (EKG) 06/04/2016 BONE DENSITY DEXA 01/21/2024 MAMMOGRAM DIGITAL BILATERAL SCREEN 07/14 MM screening mammo BI 09/28/2022 MM tomosynthesis screening BI 09/04/2021 XR DEXA axial skeleton 01/17/2024 Future Test Test Name Order Date BONE DENSITY DEXA 07/06/2021 Next Appt Details Provider Name:Issa Recio ier, 04/12/2025 10:00:00 AM, [address] [place] [address], [address], [phone], Provider Name:Issa Recio ier, 10/04/2025 08:00:00 AM, [address] [place] [address], [address], [phone], Provider Name:Issa Recio ier, 10/11/2025 08:30:00 AM, [address] [place] [address], [address], [phone], Insurance Providers Payer Name Payer Address Payer Phone Subscriber Number Group Number Insured Name Patient Relationship to Insured Coverage Start Date Coverage End Date [employer] [address] [place] [address] [id number] Marissa Polanco Self - patient is the insured [facility] [address] [place] [phone] [id number] Marissa Polanco Self - patient is the insured Medical (General) History Medical History History ICD Code copd large colon polyp age 40 ibs COLONOSCOPY 2010 due in 5 ye ars; Colonoscopy 07/31/16 w/Dr. Florian - repeat 5 years colonoscopy 2020 Rectal bleed Colonoscopy [id number] Chiqui 07/07/21, repeat 5 years
== END 2024-11-04 08:49 | disposition home or self-care (01) ==
LOC: HO.LNP 08:48
PROVIDERS: PCP Internal Medicine; Visit Provider Surgery
DX: L82.1 Other seborrheic keratosis (principal)
CPT/HCPCS: 11402; 88305

== ENCOUNTER 2024-11-04 08:48 | Outpatient (AMB) | payer MEDICARE, OTHER, SELFPAY ==
--- NOTE | 2024-11-04 08:49 | A.OFFVIS_ITS ---
Vital Signs 11/04/24 08:51 Height 5 ft 1 in Weight 106 lb 1.983 oz BMI 20.0 Intake Visit Reasons: excision Skin Lesion of back Intake Note: Office procedure: excision Skin Lesion of back Insurance Account Specialist Required: No Accompanied by: Self / Same As Patient Allergies cefaclor [From Ceclor] Allergy (Intermediate, Verified 11/04/24 08:51) Rash HPI HPI excision Skin Lesion of back: Details: She is here for excision of a skin lesion from the back. 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 Written informed consent had been given by the patient. The area of the lesion was prepped and draped. Lidocaine 1% was used for local anesthesia. An elliptical incision was made on the skin surrounding this lesion with a blade 15. This carried down sharply through the full- thickness of the skin and part of the subcutaneous fat. The lesion appeared to be about 1.2 cm in size The incision was closed with full-thickness nylon simple interrupted sutures. Dressings were applied. She tolerated procedure well. There were no immediate complications. There was minimal blood loss. 55177-wreyk/arms/legs 1.1-2cm Procedure code (CPT) selection complete Assessment & Plan Assessment & Plan (1) Skin lesion of back: Code(s): L98.9 - Disorder of the skin and subcutaneous tissue, unspecified Category: Medical Plan: Excision was done in the office under local anesthesia. She tolerated procedure well. She will be seen in the office for removal sutures in about 2 weeks. Coding Level of Care Code Procedure Only Diagnoses Skin lesion of back L98.9 CPT Codes Trunk/Arms/Legs - CPT: 97924-mgfgk/arms/legs 1.1-2cm ([id number])
--- OUTSIDE RECORDS SUMMARY | 2024-11-04 09:42 | XMS_ITS ---
Author Organization Issa Kumar MD Address [address] [place] [phone] Care Team Providers Care Firer Automatic Stoker Name Role Phone Issa Kumar Primary Care Provider [phone] Results Component Value Reference Range Notes Occult Blood, Stool, Guaiac Reviewed date:10/09/2024 02:48:33 PM Interpretation:Negative Performing Lab: Notes/Report: Negative Occult Blood, Stool, Guaiac Neg REASON FOR VISIT 1 stool card returned Encounters Encounter Location Date Provider Diagnosis Issa Kumar MD [address] [facility] [place] [phone] 10/09/2024 Issa Kumar Colon cancer screening Z12.11 Assessments Encounter Date Diagnosis (ICD Code) Assessment Notes Treatment Notes Treatment Clinical Notes Section Notes 10/09/2024 Colon cancer screening (ICD-10 - Z12.11) Plan Of Treatment Next Appt Details Provider Name:Issa hartman, 04/12/2025 10:00:00 AM, [address] [facility], [address] [facility], [place], [place], [phone], Provider Name:Issa hartman, 10/04/2025 08:00:00 AM, [address], [address], [place], [place], [phone], Provider Name:Issa Recio minnie, 10/11/2025 08:30:00 AM, [address] [facility], [address], [place], [phone], Progress Notes * Marissa MARTINEZ ADOB:02/1956 (68 yo F)Acc No.[id number]:10/09/2024 Patient:?Harmony Michels Marissa A :1955???Age:68 Y???Sex:Female Address: [place] [address] Subjective: * Chief Complaints: * ???1 stool card returned * Medical History:? * Surgical History:? * Hospitalization/Major Diagno stic Procedure:? * Medications:? Objective: Assessment: * Assessment: 1.?Colon cancer screening - Z12.11 (Primary)? Plan: * Treatment: ? Value Reference Range ?Occult Blood, Stool, Guaiac Neg * Procedure Codes:?70786 TEST FOR BLOOD, FECES * true * Date:? Generated for Claudia man/Matthew/eTransmitting on:?11/04/2024 09:41 AM EST
--- OUTSIDE RECORDS SUMMARY | 2024-11-04 09:42 | XMS_ITS ---
Author Organization Cullen Kumar MD Address [address] [place] [phone] Care Team Providers Care Borderer Name Role Phone Cullen Kumar Primary Care Provider Allergies Allergen (clinical drug ingredient) Drug/Non Drug Allergy documented on EMR Reaction Allergy Type Onset Date Status cefaclor ceclor (uncoded) hives Allergy Act ketty Reason For Referral Reason SKIN LESION OF BACK Diagnosis 1 Skin lesion of back (L98.9) Referral Organization Cullen Kumar MD Referring Provider First Name Cullen Referring Provider Last Name José Referring Provider Speciality Internal M edicine Referred Provider Zachary Samayoa Referred Provider Specialty Surgery General Notes Marissa Polanco 10/09/2024 03:15:02 PM EST > APPT SCHEDULED FOR OCT 21 AT 115, Marissa Polanco 10/23/2024 09:49:06 AM >OFFICE NOTE RECD Referral Priority Routine Referral Appointment Date 10/21/2024 REASON FOR VISIT review labs Medications Medication SIG (Take, Route, Frequency, Duration) Notes Start Date End Date Status Hyoscyamine Sulfate 0.125 MG 1 tablet on the tongue and allow to dissolve as needed Orally Four times a day as needed 04/28/2019 Not-Taking Ibuprofen 800 MG TAKE 1 TABLET BY MOUTH 3 TIMES A DAY WITH FOOD OR MILK Oral Three times a day for 90 days 04/29/2019 Not-Taking Fluticasone Propionate 50 MCG/ACT SPRAY 2 SPRAYS INTO EACH NOSTRIL EVERY DAY for 90 Active Cyclobenzaprine HCl 5 MG 1 tablet at bed time as needed Orally twice a day for 10 days 05/09/2023 Not-Taking Meclizine HCl 12.5 MG 1 tablet as needed Orally every 12 hrs for 5 days 01/30/2024 Not-Taking Claritin 10 MG 1 tablet Orally Once a day for 30 day(s) Active Singulair 10 MG 1 tablet Orally Once a day for 90 days 08/28/2021 Active Advair Diskus 250-50 MCG/ACT INHALE 1 PUFF INTO THE LUNGS TWICE A DAY for 90 Active LORazepam 0.5 MG 1 tablet at bedtime as needed Orally Once a day for 30 days 10/08/2024 Active Ventolin HFA 108 (90 Base) MCG/ACT TAKE 2 PUFFS BY MOUTH EVERY 6 HOURS NEEDED 30 Inhalation every 4 hrs for 90 days Active Social History Tobacco Use: Social History Observation Description Date Details (start date - stop date) Former Smoker NA - NA Tobacco Use/Smoking Question Answer Notes Patient is a former smoker How long has it been since y ou last smoked? 1-5 years Additional Findings: Tobacco Non-User Fo rmer smoker, currently using no form of tobacco Alcohol Screen Question Answer Notes Did you have a drink containing alcohol in the p ast year? No Points 0 Interpretation Negative Section Notes: has quit for 9 days Vital Signs Blood pressure systolic 112 mm Hg 10/08/19 25 Blood pressure diastolic 58 mm Hg 025 Height 63 in 10/08/2024 Weight 113 lbs 10/08/2024 BMI 20.01 kg/m2 10/08/2024 Encounters Encounter Location Date Provider Diagnosis Cullen Kumar MD [address] [place], [place] [phone] 10/08/2024 Cullen Kumar Prediabetes R73.09 ; Mild intermittent asthma with acute exacerbation J45.21 ; Chronic sinusitis, unspecified J32.9 and Skin lesion of back L98.9 Assessments Encounter Date Diagnosis (ICD Code) Assessment Notes Treatment Notes Treatment Clinical Notes Section Notes 10/08/2024 Prediabetes (ICD-10 - R73.09) doing well on diet 10/08/2024 Mild intermittent asthma with acute exacerbation (ICD-10 - J45.21) having no problems 10/08/2024 Chronic sinusitis, unspecified (ICD-10 - J32.9) not having any problems 10/08/2024 Skin lesion of back (ICD-10 - L98.9) is itching her so is going to have dr alberts remove it/ REFERRAL FAXED TO [facility] Plan Of Treatment Medication Medication Name Sig Start Date Stop Date Notes LORazepam 0.5 MG 1 tablet at bedtime as needed Orally Once a day for 30 days 10/08/2024 Treatment Notes Assessment Notes Prediabetes doing well on diet Mild intermittent asthma wit h acute exacerbation having no problems Chronic sinusitis, unspecified not havin g any problems Skin lesion of back is itching her so is going to have dr alberts remove it/ REFERRAL FAXED TO [facility] Referrals Referral Date Details 10/08/2024 10/08/2024, SKIN LES ION OF BACK , Zachary Samayoa Next Appt Details Follow Up: 6 Months, Reason: Provider Name:Cullen hartman, 04/12/2025 10:00:00 AM, [address] [place] [address], [address], [phone], Provider Name:Cullen hartman, 10/04/2025 08:00:00 AM, [address] [place] [address], [address] [place] [address], [phone], Provider Name:Cullen hartman, 10/11/2025 08:30:00 AM, [address] [place] [address], [address] [place] [address], [phone], Progress Notes * Marissa MARTINEZ ADOB:02/1956 (68 yo F)Acc No.[id number]:10/08/2024 Patient:?Marissa Martinez A Provider:?Cullen Kumar MD :1955???Age:68 Y???Sex:Female D ate:10/08/2024 Address:[address] [id number] Subjective: * Chief Complaints: * ???Review labs * HPI: ???Depression Screening:?PHQ-9?Little interest or pleasure in doing things?Not at all,?Feeling down, depressed, or hopeless?Several days,?Trouble falling or staying asleep, or sleeping too much?Several days,?Feeling tired or having little energy?Several days,?Poor appetite or overeating?Not at all,?Feeling bad about yourself or that you are a failure, or have let yourself or your family down?Not at all,?Trouble concentrating on things, such as reading the newspaper or watching television?Not at all,?Moving or speaking so slowly that other people could have noticed; or the opposite, being so fidgety or restless that you have been moving around a lot more than usual?Not at all,?Thoughts that you would be better off or of hurting yourself in some way?Not at all,?Total Score?3,?Interpretation?Minimal Depression.?Interpretation and Intervention?Depression Screening Findings?Negative,?Follow-Up for Depression?: review of PHQ-9 found negative result, no follow-up needed.?Communication Needs:?Communication Needs?Does the patient have a hearing impairment?No,?Does the patient have a vision impairment??Yes,?If yes, what is the vision impairment??Glasses,?Does the patient have a cognition impairment??No.?Fall Risk:?History?Have you had any falls with injury in the past year??No,?Have you had two or more falls in the past year??No.?SDOH Questions:?SDOH Questions?In the past year have you been worried about losing housing??No,?In the past year have you or any family members you live with been unable to get any of the following when it was really needed? Check all that apply:?None.? * ROS:?General/Constitutional:?Patient denies?fatigue , headache.?Change in appetite?denies.?Chills?denies.?Fever?denies.?Ophthalmologic:?Blurred vision?denies.?Discharge?denies.?Pain?denies.?ENT:?Patient denies?decreased sense of smell , any loss of taste , sore throat.?Decreased hearing?denies.?Sore throat?denies.?Swollen glands?denies.?Endocrine:?Cold intolerance?denies.?Excessive thirst?denies.?Heat intolerance?denies.?Weight loss?denies.?Respiratory:?Cough?denies.?Shortness of breath at rest?denies.?Shortness of breath with exertion?denies.?Wheezing?denies.?Cardiovascular:?Chest pain at rest?denies.?Chest pain with exertion?denies.?Irregular heartbeat?denies.?Shortness of breath?denies.?Gastrointestinal:?Abdominal pain?denies.?Change in bowel habits?denies.?Diarrhea?denies.?Nausea?denies.?Rectal bleeding?denies.?Vomiting?denies .?Genitourinary:?Blood in urine?denies.?Difficulty urinating?denies.?Frequent urination?denies.?Urinary incontinence?Denies.?Musculoskeletal:?Patient denies?muscle aches.?Painful joints?denies.?Weakness?denies.?Peripheral Vascular:?Patient denies?red and blue toes.?Skin:?Dry skin?denies.?Itching?denies.?Denies?Mole(s),? changes in moles, new moles or any lesions of concern.?Denies?Photosensitivity.?Rash?denies.?Neurologic:?Dizziness?denies.?Fainting?denies.?Headache?denies.? * Medical History:? * Surgical History:? * Hospitalization/Major Diagno stic Procedure:? * Family History:?Father: dece ased 74 yrs, lung cancer.?Mother: 83 yrs, hypertension, diagnosed with Hypertension.?1 brother(s) , 2 sister(s) . .? Denies mental health/substance abuse family history, No pertinent family medical history, No pertinent family medical history, Denies mental health/substance abuse family history. * Social History:?Tobacco Use:?Tobacco Use/Smoking?Patient is a?former smoker,?How long has it been since you last smoked??1-5 years,?Additional Findings: Tobacco Non-User?Former smoker, currently using no form of tobacco.?Drugs/Alcohol:?Alcohol Screen?Did you have a drink containing alcohol in the past year??No,?Points?0,?Interpretation?Negative.?Miscellaneous:?Caffeine: yes, 2-3 cups per day, coffee. no Children. no Community involvements. Exercise: yes, walks QD swimming in the summer. Housing: renting. Living with: spouse. Marital status: . Occupation: works full-time. Pets: none. no Travel outside of the [place]. ???has quit for 9 days. * Medications:?TakingAdvair Di skus 250-50 MCG/ACT Aerosol Powder Breath Activated INHALE 1 PUFF INTO THE LUNGS TWICE A DAY Singulair 10 MG Tablet 1 tablet Orally Once a dayVentolin HFA 108 (90 Base) MCG/ACT Aerosol Solution TAKE 2 PUFFS BY MOUTH EVERY 6 HOURS NEEDED 30 Inhalation every 4 hrsFluticasone Propionate 50 MCG/ACT Suspension SPRAY 2 SPRAYS INTO EACH NOSTRIL EVERY DAY Claritin 10 MG Tablet 1 tablet Orally Once a dayTaking Advair Diskus 250-50 MCG/ACT Aerosol Powder Breath Activated INHALE 1 PUFF INTO THE LUNGS TWICE A DAY Taking Singulair 10 MG Tablet 1 tablet Orally Once a dayTaking Ventolin HFA 108 (90 Base) MCG/ACT Aerosol Solution TAKE 2 PUFFS BY MOUTH EVERY 6 HOURS NEEDED 30 Inhalation every 4 hrsTaking Fluticasone Propionate 50 MCG/ACT Suspension SPRAY 2 SPRAYS INTO EACH NOSTRIL EVERY DAY Taking Claritin 10 MG Tablet 1 tablet Orally Once a dayNot-Taking/PRNMeclizine HCl 12.5 MG Tablet 1 tablet as needed Orally every 12 hrsCyclobenzaprine HCl 5 MG Tablet 1 tablet at bedtime as needed Orally twice a dayHyoscyamine Sulfate 0.125 MG Tablet Disintegrating 1 tablet on the tongue and allow to dissolve as needed Orally Four times a day as neededIbuprofen 800 MG Tablet TAKE 1 TABLET BY MOUTH 3 TIMES A DAY WITH FOOD OR MILK Oral Three times a dayLORazepam 0.5 MG Tablet 1 tablet at bedtime as needed Orally Once a dayNot-Taking/PRN Meclizine HCl 12.5 MG Tablet 1 tablet as needed Orally every 12 hrsNot-Taking/PRN Cyclobenzaprine HCl 5 MG Tablet 1 tablet at bedtime as needed Orally twice a dayNot-Taking/PRN Hyoscyamine Sulfate 0.125 MG Tablet Disintegrating 1 tablet on the tongue and allow to dissolve as needed Orally Four times a day as neededNot-Taking/PRN Ibuprofen 800 MG Tablet TAKE 1 TABLET BY MOUTH 3 TIMES A DAY WITH FOOD OR MILK Oral Three times a dayNot-Taking/PRN LORazepam 0.5 MG Tablet 1 tablet at bedtime as needed Orally Once a dayDiscontinuedAlbuterol Sulfate 1.25 MG/3ML Nebulization Solution 3 mL as needed Inhalation every 8 hrslevoFLOXacin 500 MG Tablet 1 tablet Orally Once a daypredniSONE 10 MG Tablet 1 tablet with food or milk Orally 4 tabs for 3 days,3tabs for 3 days, 2 tabs for 3 days, and 1 tab for 3 daysWixela Inhub 250-50 MCG/ACT Aerosol Powder Breath Activated 1 puff Inhalation Twice a dayMedication List reviewed and reconciled with the patientDiscontinued Albuterol Sulfate 1.25 MG/3ML Nebulization Solution 3 mL as needed Inhalation every 8 hrsDiscontinued levoFLOXacin 500 MG Tablet 1 tablet Orally Once a dayDiscontinued predniSONE 10 MG Tablet 1 tablet with food or milk Orally 4 tabs for 3 days,3tabs for 3 days, 2 tabs for 3 days, and 1 tab for 3 daysDiscontinued Wixela Inhub 250-50 MCG/ACT Aerosol Powder Breath Activated 1 puff Inhalation Twice a dayMedication List reviewed and reconciled with the patient * Allergies:?ceclor: hivesyes[ Allergies Verified] Objective: * Vitals:?Ht: 63, Wt:113, BMI: 20.01, BP:112/58. * ???Past Orders: ???Lab:Complete Blood Count Auto Diff (Order Date - 10/02/2024) (Collection Date - 10/02/2024) ? Value Reference Range ?White Blood Count 6.1 4. 8-10.8 - X10*3/uL ?Red Blood Count 3.94 L 4.20 -5.50 - X10*6/uL ?Hemoglobin 12.4 12.0-16.0 - g/dl ?Hematocrit 37.7 37.0-47.0 - % ?Mean Corpuscular Volume 95.7 80.0-98.0 - fL ?Mean Corpuscular Hemoglobin 31.5 27.0-33.0 - pg ?Mean Corpuscular HGB Conc 32.9 31.0-35.0 - g/dl ?Red Cell Distribution Width 13.0 11.0-16.0 - % ?Platelet Count 248 160-4 00 - X10*3/uL ?Mean Platelet Volume 11.0 9.4-12.3 - fL ?Neutrophils Percent Auto 52.8 45-73 - % ?Imm Gran Pct Auto 0.2 0. 0-0.4 - % ?Lymphocytes Percent Auto 33.5 20-40 - % ?Monocytes Percent Auto 6.9 2-11 - % ?Eosinophils Percent Auto 5.1 H 0-4 - % ?Basophils Percent Auto 1.5 0-2 - % ?NRBC Pct Auto 0.0 0.0-0. 2 - /100WBC ?Neutrophils Absolute Auto 3.2 2.0-8.3 - x10*3/uL ?Imm Gran Abs Auto 0.01 0. 00-0.03 - X10*3/uL ?Lymphocytes Absolute Auto 2.0 1.2-4.9 - X10*3/uL ?Monocytes Absolute Auto 0.4 0.1-1.2 - X10*3/uL ?Eosinophils Absolute Auto 0.3 0.0-0.4 - X10*3/uL ?Basophils Absolute Auto 0.1 0.0-0.2 - X10*3/uL ?NRBC Abs Auto 0.000 0.0-0. 012 - X10*3/uL ???Lab:Lipid Panel (Order Da 10/02/2024) (Collection Date - 10/02/2024) ? Value Reference Range ?Triglycerides 51 <150 - mg/dL ?Cholesterol 217 H <200 - m g/dL ?LDL Cholesterol Calculated 120 H <100 - mg/dL ?HDL Cholesterol 87 >40 - mg/dL ???Lab:Microalbumin, Random (Order - 10/02/2024) (Collection Date - 10/02/2024) ? Value Reference Range ?Creatinine Urine 36.30 - m g/dL ?Microalbumin Urine < 5.0 - mg/L ?Microalbum Creatinine Ratio Ur TNP <30 - ug/mg cr ???Lab:Hemoglobin A1c (Order 10/02/2024) (Collection Date - 10/02/2024) ? Value Reference Range ?Hemoglobin A1c % 5.9 <6. 0 - % ?Estimated Average Glucose 123 - mg/dL ???Lab:UA ClnCatch+Micro w/r flx Cult (Order 10/02/2024) (Collection Date - 10/02/2024) ? Value Reference Range ?Color Urine Yellow - ?Appearance Urine Clear - ?PH 5.5 5.0-9.0 - ?Glucose Urine UA Negative Neg ative - mg/dL ?Urine Blood Negative Negative - ?Specific [place] - Urine <= 1.005 1.005-1.025 - ?Urine Protein Negative Neg-Tr lisa - mg/dL ?Urine Ketones Negative Negati ve - mg/dL ?Nitrite Urine Negative Negati ve - ?Leukocyte Esterase Urine Negative Negative - ?RBC Urine 0-2 0-2 - /HPF ?WBC Urine 0-5 0-5 - /HPF ?Squamous Epithelial Cell Urine 0-2 0-2 - /HPF ?Bacteria Urine None Seen None Seen - ?Hyaline Casts Urine 0-2 0-2 - /LPF * Examination: ???General Examination: ?GENERAL APPEARANCE:?well developed, well nourished, in no acute distress.?HEAD:?normocephalic, atraumatic.?EYES:?pupils equal, round, reactive to light and accommodation, sclera non-icteric.?EARS:?normal.?ORAL CAVITY:?mucosa moist.?THROAT:?clear.?NECK/THYROID:?neck supple, full range of motion, no cervical lymphadenopathy, no bruits.?SKIN:?warm and dry, no suspicious lesions , abnormal has a dermal nevus in mid back with some benign appearing surrounding pigmentation that has about 1/3 inch entirety.?HEART:?regular rate and rhythm, S1, S2 normal, no murmurs.?LUNGS:?clear to auscultation bilaterally.?BREASTS:?No mass, no lump.?ABDOMEN:?soft, nontender, nondistended, bowel sounds present, normal, no organomegaly , no masses palpable.?RECTAL EXAM:?sent with stool cqrds.?FEMALE GENITOURINARY:?not done.?EXTREMITIES:?no clubbing, cyanosis, or edema.?NEUROLOGIC:?nonfocal, motor strength normal upper and lower extremities, sensory exam intact.? Assessment: * Assessment: 1.?Prediabetes - R73.09 (Nella wheeler)?2.?Mild intermittent asthma with acute exacerbation - J45.21?3.?Chronic sinusitis, unspecified - J32.9?4.?Skin lesion of back - L98.9? Plan: * Treatment: 2.?Mild intermittent asthma with acute exacerbation? Notes: having no problems?? 3.?Chronic sinusitis, unspec ified? Notes: not having any problems?? 4.?Skin lesion of back? Notes: is itching her so is going to have dr alberts remove it/ REFERRAL FAXED TO [facility]? Referral To:Zachary Samayoa??Surgery ?Reason:SKIN LESION OF BACK 5.?Others? Refill LORazepam Tablet, 0.5 MG, 1 tablet at bedtime as needed, Orally, Once a day, 30 days, 30 Tablet, Refills 0.?? * Procedure Codes:? * Preventive Medicine:? ??COPD Care Plan:?Patient Lifestyle Goals?Relieve symptoms and improve quality of life.?Treatment Goals?Exercise to help the whole body, including lungs.?Barriers No Specific barriers.?Self-Managment Plan?Eat a healthy diet.?Expected Outcome?maintaining functional ability in daily activities.? * Follow Up:?6 Months * * Sign off status: Completed true * Provider:?Cullen Kumar MD Date:?0 10/08/2024 Generated for Claudia man/Matthew/eTransmitting on:?11/04/2024 09:42 AM EST History and Physical Notes * HPI (History of Present Illness) Category Sub-Category Detail Notes Category Not es Depression Screening PHQ-9 Little inte rest or pleasure in doing things: Not at all Feeling down, depressed, or hopeless: Se veral days Trouble falling or staying asleep, or sl eeping too much: Several days Feeling tired or having little energy: S everal days Poor appetite or overeating: Not at all Feeling bad about yourself o r that you are a failure, or have let yourself or your family down: Not at all Trouble concentrating on thi ngs, such as reading the newspaper or watching television: Not at all Moving or speaking so slowly that other people could have noticed; or the opposite, being so fidgety or restless that you have been moving around a lot more than usual: Not at all Thoughts that you would be b josefina off or of hurting yourself in some way: Not at all Total Score: 3 Interpretation: Minimal Depression Interpretation and Intervention Depression Tedisis aarti Findings: Negative Follow-Up for Depression: : review of PH Q-9 found negative result, no follow-up needed SDOH Questions SDOH Questions In the past year have you been worried about losing housing?: No In the past year have you or any family members you live with been unable to get any of the following when it was really needed? Check all that apply:: None Fall Risk History Have you had any falls with injury i n the past year?: No Have you had two or more falls in the st year?: No Communication Needs Communication Needs Does the patient have a hearing impairment: No Does the patient have a vision impairmen t?: Yes ?If yes, what is the vision impairment?: Glasses Does the patient have a cognition impair ment?: No Examination Category Sub-Category Detail Notes Category Not es General Examination GENERAL APPEARANCE: well dev eloped, well nourished, in no acute distress HEAD: normocephalic, atrau matic EYES: pupils equal, round, reactive to light and accommodation, sclera non- icteric EARS: normal THROAT: clear NECK/THYROID: neck supple, full ra nge of motion, no cervical lymphadenopathy, no bruits HEART: regular rate and rhy thm, S1, S2 normal, no murmurs LUNGS: clear to auscultatio n bilaterally ABDOMEN: soft, nontender, non distended, bowel sounds present, normal, no organomegaly , no masses palpable NEUROLOGIC: nonfocal, motor stre ngth normal upper and lower extremities, sensory exam intact SKIN: warm and dry, no ingris picious lesions , abnormal has a dermal nevus in mid back with some benign appearing surrounding pigmentation that has about 1/3 inch entirety EXTREMITIES: no clubbing, cyanosi s, or edema BREASTS: No mass, no lump RECTAL EXAM: sent with stool cqrd s FEMALE GENITOURINARY: not done ORAL CAVITY: mucosa moist Consultation Request Notes Referral Date Referring Provider Referred Provider Not es 10/08/2024 Cullen Kumar Francis SKIN L ESION OF BACK
--- OUTSIDE RECORDS SUMMARY | 2024-11-04 09:42 | XMS_ITS | Patient Health Record ---
Author Organization [facility] Address [address] [place] [address] Care Team Providers Care Plater Production Name Role Phone José CRAWFORD, Issa Primary Care Provider Zhen Marie Unavailable [phone] ALLERGIES Allergen (clinical drug ingredient) Drug/Non Drug Allergy documented on EMR Reaction Allergy Type Onset Date Status cefaclor ceclor (uncoded) Unknown Allergy Act ketty seasonal (uncoded) Unknown Allergy A ctive REASON FOR REFERRAL No Information MEDICATIONS Medication SIG (Take, Route, Fr equency, Duration) Notes Start Date End Date Status Claritin Active Flonase Active Albuterol Sulfate HFA Active IMMUNIZATIONS Vaccine Route Administration Date Status Comme nts Influenza Unknown 07/29/2018 Administered Influenza Unknown 06/07/2020 Administered SOCIAL HISTORY Tobacco Use: Social History Observation Description Date Details (start date - stop date) Former Smoker NA - NA Sex Assigned At : Social History Observation Description Sex Assigned At Unknown Tobacco Use/Smoking Question Answer Notes Patient is a former smoker How long has it been since you last smoked? 6-12 months PROBLEMS Problem Type ICD Code Onset Dates Problem Status W/U Status Risk SNOMED Code Notes Problem Encounter for screening for malignant neoplasm of colon (Z12.11) Active confirmed 010303940 Problem History of adenomatous polyp of colon (Z86.010) Active confirmed 670477048 Problem Irritable bowel syndrome with diarrhea (K58.0) Active confirmed 918726704 Problem Encounter for screening for malignant neoplasm of rectum (Z12.12) Active confirmed Screening fo r malignant neoplasm of rectum (034427628) Problem Diverticulosis of colon (K57.30) Active confirmed Diverticulosi s of colon (706461999) PLAN OF TREATMENT Pending Test Test Name Order Date Pathology 07/07/2021 Future Test Test Name Order Date COLONOSCOPY 03/27/2016 COLONOSCOPY 04/25/2021 Insurance Providers Payer Name Payer Address Payer Phone Subscriber Number Group Number Insured Name Patient Relationship to Insured Coverage Start Date Coverage End Date [facility] [address] [place] [phone] [id number] EDGARDO MARTINEZ Self - patient is the insured MEDICAL (GENERAL) HISTORY Medical History History ICD Code Depression Irritable bowel syndrome--neg celiac dis ease labs in 2016 1.5 cm Tubular adenoma remov ed in 2000; negative colonoscopies in 2002 and 2005; colonoscopy in June of 2011 with removal of a small tubular adenoma; colonoscopy in 07/2016 was negative Denies NM,DM,CVA,Lung disease,renal dise ase Surgical History Surgery Date(Month/Year) tonsillectomy
--- OUTSIDE RECORDS SUMMARY | 2024-11-04 09:42 | XMS_ITS ---
Author Organization Issa Kumar MD Address [address] [place] [phone] Care Team Providers Care Director [employer] Name Role Phone Issa Kumar Primary Care Provider Results Component Value Reference Range Notes Complete Blood Count Auto Di ff Reviewed date:10/02/2024 12:35:51 PM Interpretation: Performing Lab:[facility], [address] [place] [phone] Notes/Report: White Blood Count 6.1 4.8-10.8 X10*3/uL Red Blood Count 3.94 4.20-5.50 X10*6/uL Hemoglobin 12.4 12.0-16.0 g/dl Hematocrit 37.7 37.0-47.0 % Mean Corpuscular Volume 95.7 80.0-98.0 fL Mean Corpuscular Hemoglobin 31.5 27.0-33.0 pg Mean Corpuscular HGB Conc 32.9 31.0-35.0 g/dl Red Cell Distribution Width 13.0 11.0-16.0 % Platelet Count 248 160-400 X10*3/uL Mean Platelet Volume 11.0 9.4-12.3 fL Neutrophils Percent Auto 52.8 45-73 % Imm Gran Pct Auto 0.2 0.0-0.4 % Lymphocytes Percent Auto 33.5 20-40 % Monocytes Percent Auto 6.9 2-11 % Eosinophils Percent Auto 5.1 0-4 % Basophils Percent Auto 1.5 0-2 % NRBC Pct Auto 0.0 0.0-0.2 /100WBC Neutrophils Absolute Auto 3.2 2.0-8.3 x10*3/u L Imm Gran Abs Auto 0.01 0.00-0.03 X10*3/uL Lymphocytes Absolute Auto 2.0 1.2-4.9 X10*3/u L Monocytes Absolute Auto 0.4 0.1-1.2 X10*3/uL Eosinophils Absolute Auto 0.3 0.0-0.4 X10*3/u L Basophils Absolute Auto 0.1 0.0-0.2 X10*3/uL NRBC Abs Auto 0.000 0.0-0.012 X10*3/uL Comprehensive Peach Bottom. Panel Fa st Reviewed date:10/02/2024 04:05:11 PM Interpretation: Performing Lab:[facility], [address] [place] [phone] Notes/Report: Sodium 135 135-145 mmol/L Potassium 3.8 3.3-5.1 mmol/L Chloride 105 96-108 mmol/L Carbon Dioxide 24 22-29 mmol/L Anion Gap 10 12-20 Blood Urea Nitrogen 15 9-16 mg/dL Creatinine 0.73 0.5-1.4 mg/dL Estimated Glomerular Filt Rate > 60 Chronic Kidney Disease: Estimated GFR < 60 mL/min/1.73m2 Severe Kidney Disease: Estimated GFR < 15 mL/min/1.73m2 Glucose Fasting 114 60-99 mg/dL A fasting glucose from 100-125 mg/dl is considered impaired (pre-diabetes). Calcium 9.0 8.4-10.2 mg/dL Bilirubin Total 0.4 0.0-1.0 mg/dL Aspartate Amino Transferase 24 5-31 U/L Alanine Aminotransferase 19 0-31 U/L Total Protein 6.2 6.5-8.0 g/dL Albumin Level 4.0 3.5-5.0 g/dL Alkaline Phosphatase 51 39-117 U/L Lipid Panel Reviewed date:10/02/2024 02:59:30 PM Interpretation: Performing Lab:[facility], [address] [place] [phone] Notes/Report: Triglycerides 51 <150 mg/dL Desirable Triglyceride: less than 150 mg/dL Borderline High Triglyceride 150-199 mg/dL High Triglyceride: 200-499 mg/dL Very High Triglyceride: greater than or equal to 5OO mg/dL Cholesterol 217 <200 mg/dL Desirable Cholesterol: less than 200 mg/dL Borderline High Cholesterol: 200-239 mg/dL High Cholesterol: greater than 239 mg/dL LDL Cholesterol Calculated 120 <100 mg/dL Desirable LDL: less than 100 mg/dL Near Optimal/Above Optimal LDL: 110-129 mg/dL Borderline High LDL: 130-159 mg/dL High LDL: 160-189 mg/dL Very High LDL: greater than or equal to 190 mg/dL HDL Cholesterol 87 >40 mg/dL Desirable HDL: greater than 40 mg/dL Note: This HDL assay may give artificially low results in patients with liver disease. Vitamin D 25-OH Total Reviewed date:10/02/2024 04:05:20 PM Interpretation: Performing Lab:[facility], [address] [place] [phone] Notes/Report: Vitamin D 25-OH Total 44.0 >30 ng/mL Health Based Reference Values* < 20 ng/mL Deficient 20-30 ng/mL Insufficient > 30 ng/mL Sufficient *Garret PADILLA. N Engl J Med. 2007;357:266-280 Care must be taken in interpreting Vitamin D results from different laboratories and methodologies. Published data demonstrated that results from patients undergoing hemodialysis may show a negative bias when tested with various automated 25-OH vitamin D assays when compared to LC-MS/MS. When testing samples from patients whose predominant form of Vitamin D is Vitamin D2, such as patients receiving Vitamin D2 supplementation, results that are subtherapeutic should be confirmed with another method such as LC-MS/MS. Microalbumin, Random Reviewed date:10/02/2024 02:59:44 PM Interpretation: Performing Lab:[facility], [address] [place] [phone] Notes/Report: Creatinine Urine 36.30 Microalbumin Urine < 5.0 Microalbum/Creatinine Ratio Ur TNP <30 ug/mg cr Unable to calculate albumin/creatinine ratio due to low microalbumin or creatinine result. Hemoglobin A1c Reviewed date:10/02/2024 12:29:11 PM Interpretation: Performing Lab:[address] [phone] Notes/Report: Hemoglobin A1c % 5.9 <6.0 % Hemoglobin A1C Reference Range Adults: 4.8 - 6.0 % Non diabetic: < 6.0 % Goal: < 7.0 % Additional Action Suggested: > 8.0 % Note: Hemoglobin A1c results are invalid for patients with abnormal amounts of HbF. Blood transfusions may impact the HbA1c concentration in the patient sample. Estimated Average Glucose 123 eAG = Estimated average glucose which is %A1C expressed as average glucose, using the formula of the [id number] Average Glucose study (ADAG), Diabetes Care, Vol.31,#8, May. 2007 UA ClnCatch+Micro w/rflx Cul t Reviewed date:10/02/2024 12:36:07 PM Interpretation: Performing Lab:[facility], [address] [place] [phone] Notes/Report: Urine, Clean Catch Color Urine Yellow Appearance Urine Clear PH 5.5 5.0-9.0 Glucose Urine UA Negative Negative mg/dL Urine Blood Negative Negative Specific [place] - Urine <= 1.005 1.005-1.025 Urine Protein Negative Neg-Trace mg/dL Urine Ketones Negative Negative mg/dL Nitrite Urine Negative Negative Leukocyte Esterase Urine Negative Negative RBC Urine 0-2 0-2 /HPF WBC Urine 0-5 0-5 /HPF Squamous Epithelial Cell Urine 0-2 0-2 /HPF Bacteria Urine None Seen None Seen Hyaline Casts Urine 0-2 0-2 /LPF REASON FOR VISIT FASTING LABS Medications Medication SIG (Take, Route, Frequency, Duration) Notes Start Date End Date Status LORazepam 0.5 MG 1 tablet at bedtime as needed Orally Once a day for 30 days 01/12/2020 Not-Taking levoFLOXacin 500 MG 1 tablet Orally Once a day for 10 day(s) 07/10/2024 Active Claritin 10 MG 1 tablet Orally Once a day for 30 day(s) Active predniSONE 10 MG 1 tablet with food o r milk Orally 4 tabs for 3 days,3tabs for 3 days, 2 tabs for 3 days, and 1 tab for 3 days for 14 days 07/10/2024 Active Wixela Inhub 250-50 MCG/ACT 1 puff Inhal ation Twice a day for 90 days Active Cyclobenzaprine HCl 5 MG 1 tablet at bed time as needed Orally twice a day for 10 days 05/09/2023 Not-Taking Hyoscyamine Sulfate 0.125 MG 1 tablet on the tongue and allow to dissolve as needed Orally Four times a day as needed 04/28/2019 Not-Taking Fluticasone Propionate 50 MCG/ACT SPRAY 2 SPRAYS INTO EACH NOSTRIL EVERY DAY for 90 Active Meclizine HCl 12.5 MG 1 tablet as needed Orally every 12 hrs for 5 days 01/30/2024 Not-Taking Ibuprofen 800 MG TAKE 1 TABLET BY MOUTH 3 TIMES A DAY WITH FOOD OR MILK Oral Three times a day for 90 days 04/29/2019 Not-Taking Advair Diskus 250-50 MCG/ACT INHALE 1 PUFF INTO THE LUNGS TWICE A DAY for 90 Active Singulair 10 MG 1 tablet Orally Once a day for 90 days 08/28/2021 Active Ventolin HFA 108 (90 Base) MCG/ACT TAKE 2 PUFFS BY MOUTH EVERY 6 HOURS NEEDED 30 Inhalation every 4 hrs for 90 days Active Albuterol Sulfate 1.25 MG/3ML 3 mL as needed Inhalation every 8 hrs for 90 days 05/02/2023 Active Encounters Encounter Location Date Provider Diagnosis Issa Kumar MD [address] [place] [address] [place] [phone] 10/02/2024 Issa Kumar Prediabetes R73.09 and Vitamin D deficiency E55.9 Assessments Encounter Date Diagnosis (ICD Code) Assessment Notes Treatment Notes Treatment Clinical Notes Section Notes 10/02/2024 Prediabetes (ICD-10 - R73.09) 10/02/2024 Vitamin D deficiency (ICD-10 - E55.9) Plan Of Treatment Next Appt Details Provider Name:Issa hartman, 04/12/2025 10:00:00 AM, [address] [place] [address], [address] [place] [address], [phone], Provider Name:Issa hartman, 10/04/2025 08:00:00 AM, [address] [place] [address], Suite [facility], [place], [place], [phone], Provider Name:Issa hartman, 10/11/2025 08:30:00 AM, [address], [address], [place], [place], [phone], Progress Notes * Marissa MARTINEZ ADOB:02/1956 (68 yo F)Acc No.[id number]:10/02/2024 Progress Note Patient:?Marissa MARTINEZ A Provider:?Issa Kumar MD :1955???Age:68 Y???Sex:Female D ate:10/02/2024 [id number] Subjective: * Chief Complaints: * ???1. FASTING LABS. * Medical History:? * Medications:?Taking Advair D iskus 250-50 MCG/ACT Aerosol Powder Breath Activated INHALE 1 PUFF INTO THE LUNGS TWICE A DAY , Taking Singulair 10 MG Tablet 1 tablet Orally Once a day , Taking Ventolin HFA 108 (90 Base) MCG/ACT Aerosol Solution TAKE 2 PUFFS BY MOUTH EVERY 6 HOURS NEEDED 30 Inhalation every 4 hrs , Taking Albuterol Sulfate 1.25 MG/3ML Nebulization Solution 3 mL as needed Inhalation every 8 hrs , Taking Fluticasone Propionate 50 MCG/ACT Suspension SPRAY 2 SPRAYS INTO EACH NOSTRIL EVERY DAY , Taking Claritin 10 MG Tablet 1 tablet Orally Once a day , Taking levoFLOXacin 500 MG Tablet 1 tablet Orally Once a day , Taking predniSONE 10 MG Tablet 1 tablet with food or milk Orally 4 tabs for 3 days,3tabs for 3 days, 2 tabs for 3 days, and 1 tab for 3 days , Taking Wixela Inhub 250-50 MCG/ACT Aerosol Powder Breath Activated 1 puff Inhalation Twice a day , Not-Taking/PRN Meclizine HCl 12.5 MG Tablet 1 tablet as needed Orally every 12 hrs , Not-Taking/PRN Cyclobenzaprine HCl 5 MG Tablet 1 tablet at bedtime as needed Orally twice a day , Not-Taking/PRN Hyoscyamine Sulfate 0.125 MG Tablet Disintegrating 1 tablet on the tongue and allow to dissolve as needed Orally Four times a day as needed , Not-Taking/PRN Ibuprofen 800 MG Tablet TAKE 1 TABLET BY MOUTH 3 TIMES A DAY WITH FOOD OR MILK Oral Three times a day , Not-Taking/PRN LORazepam 0.5 MG Tablet 1 tablet at bedtime as needed Orally Once a day Objective: * Vitals:? Assessment: * Assessment: 1.?Prediabetes - R73.09 (Nella wheeler)???2.?Vitamin D deficiency - E55.9??? Plan: * Treatment: 2.?Vitamin D deficiency?LAB: Complete Blood Count Auto Diff (Collection Date & Time - 10/02/2024 08:30 AM) ?LAB: Comprehensive [place]. Panel Fast (Collection Date & Time - 10/02/2024 08:30 AM) ?LAB: Lipid Panel (Collection Date & Time - 10/02/2024 08:30 AM) ?LAB: Vitamin D 25-OH Total (Collection Date & Time - 10/02/2024 08:30 AM) ?LAB: Microalbumin, Random (Collection Date & Time - 10/02/2024 08:30 AM) ?LAB: Hemoglobin A1c (Collection Date & Time - 10/02/2024 08:30 AM) ?LAB: UA ClnCatch+Micro w/rflx Cult (Collection Date & Time - 10/02/2024 08:30 AM) * Procedure Codes:?85644 VENIP UNCT, ROUTINE* * * The named appointment provid er may or may not be the originator of this progress note, and it is not deemed complete until electronically signed by the appointment provider. Sign off status: Pending * Provider:?Issa Kumar MD Date:?1 12/03/2023 Generated for Claudia man/Matthew/eTbrionnasmitting on:?11/04/2024 09:42 AM EST
== END 2024-11-04 09:21 | disposition home or self-care (01) ==
PROVIDERS: PCP Internal Medicine; Visit Provider Surgery
DX: L82.0 Inflamed seborrheic keratosis (principal)
CPT/HCPCS: 11402

== ENCOUNTER 2025-02-05 07:28 | Outpatient (REF) | payer MEDICARE, OTHER, SELFPAY | END 2025-02-05 07:29 | disposition home or self-care (01) | LOC: HO.MAMMO 07:28 | PROVIDERS: PCP Internal Medicine; Visit Provider Internal Medicine | DX: Z12.31 Encounter for screening mammogram for malignant neoplasm of breast (principal) | CPT/HCPCS: 77063; 77067 ==

== ENCOUNTER → 2025-02-05 07:45 | Outpatient (BNV) | payer MEDICARE, OTHER, SELFPAY | PROVIDERS: PCP Internal Medicine; Visit Provider Internal Medicine | DX: Z12.31 Encounter for screening mammogram for malignant neoplasm of breast (principal) | CPT/HCPCS: 77063; 77067 ==